=== PATIENT | female | born 1980 | race Caucasian/White ===

== ENCOUNTER 2019-10-08 09:29 | Emergency (ER) | payer OTHER, MEDICARE, SELFPAY ==
[2019-10-08 09:40] VITALS: BP 149/85; PULSE 85; RESP 16; TEMP 36.2; O2SAT 98
--- NOTE | 2019-10-08 09:43 | ED.SKABFB ---
HPI - Skin/Abscess/Foreign Bdy General Chief complaint: Skin/Abscess/Foreign Body Stated complaint: Poison jena or oak Time Seen by Provider: 10/08/19 09:44 Source: patient and RN notes reviewed Mode of arrival: ambulatory Limitations: no limitations History of Present Illness HPI narrative: This is a 39 years old female presents to the office for an evaluation of itchy rash on her face since yesterday. She was pulling vine off her garage door about a week ago. She did not has rash on her face immediately; however her and daughter had similar rash at home; but not as bad. She has tried calamine and benadryl for her symptoms. TD is up to date. Related Data Home Medications Medication Instructions Recorded Confirmed celecoxib [Celebrex] 200 mg PO DAILY 04/17/19 04/17/19 certolizumab pegol [Cimzia] 400 mg SUBCUT ONCE 04/17/19 04/17/19 cholecalciferol (vitamin D3) 1,000 unit PO DAILY 04/17/19 04/17/19 [Vitamin D3] fluticasone propionate [Flonase INTRANASAL 04/17/19 Allergy Relief] folic acid 1 mg PO DAILY 04/17/19 04/17/19 methotrexate 0.8 mg 04/17/19 ji-cx-YR-vit A-ndadg-[id number]-coQ10 cap PO 04/17/19 [Daily Multivitamin] pregabalin [Lyrica] 75 mg PO BID 04/17/19 04/17/19 paroxetine HCl [Paxil] 20 mg PO QAM 05/27/19 05/27/19 omeprazole 40 mg capsule,delayed 40 mg PO DAILY 06/23/19 release Allergies Allergy/AdvReac Type Severity Reaction Status Date / Time Penicillins Allergy Severe Anaphylaxis Verified 06/23/19 09:48 Review of Systems Review of Systems: Narrative: CONSTITUTIONAL: Denies fever ENT: Denies difficulty breathing, lips/tounge swollen CARDIOVASCULAR: Denies chest pain RESPIRATORY: Denies dyspnea, cough GASTROINTESTINAL: Denies nausea, vomiting SKIN: Reports itchy rash on face and left ear. MUSCULOSKELETAL: Denies acute back pain NEUROLOGIC: Denies lightheaded PMFSH Past Medical History Medical History Carpal tunnel syndrome Depression Endometriosis Fibromyalgia Neuropathy Raynauds disease Rheumatoid arthritis Surgical History Surgical History History of bilateral tubal ligation History of spinal fusion Previous section x3 Family History Family History Grandparent Malignant neoplasm of prostate Family history of malignant neoplasm of bone Mother Family history of malignant neoplasm of cervix Other Carcinoma of colon Family history of malignant neoplasm of breast Family history of malignant neoplasm of gastrointestinal tract Family history of malignant neoplasm of kidney Social History Social History Smoking status: Former smoker Second hand tobacco smoke exposure: No Smoking end date: 06/01/99 Alcohol intake: current Comments At time of signature, I agree with nursing past medical, surgical, social and family history. There is no relevant family history pertinent to the presenting complaint. Exam Narrative: Exam Narrative: GENERAL: This is a well-nourished, well-developed patient, in no apparent distress. HEAD: normocephalic, atraumatic. EYES: Sclera clear/white. Vision is grossly intact. EARS: External ears normal, auditory canals clear and without drainage, TMs normal without perforation. Hearing grossly intact. NOSE: External nose normal with no obvious nasal discharge, nares without redness, no rhinorrhea. THROAT: Mucous membranes moist, posterior pharynx clear. NECK: Neck supple, non-tender without lymphadenopathy, masses or thyromegaly. CARDIOVASCULAR: Regular rate and rhythm without murmurs, gallops, or rubs. RESPIRATORY: Clear to auscultation. Breath sounds equal bilaterally. No wheezes, rales, or rhonchi. GASTROINTESTINAL: Abdomen soft, non-tender, nondistended. Bowel sounds are active. No hepato-splenomegaly, o
[2019-10-08] MEDS: methylPREDNISolone ACETATE 40 MG/ML VIAL 80 MG IM (10:01)
== END 2019-10-08 10:28 | disposition home or self-care (01) ==
PROVIDERS: Emergency Provider Nurse Practitioner; PCP Internal Medicine
DX: L24.7 Irritant contact dermatitis due to plants, except food (principal); M06.9 Rheumatoid arthritis, unspecified
CPT/HCPCS: 96372; 99213; G0463; J1030

== ENCOUNTER 2020-02-28 08:49 | Emergency (ER) | payer OTHER, MEDICARE, SELFPAY ==
--- NOTE | 2020-02-28 09:00 | ED.SKABFB ---
HPI - Skin/Abscess/Foreign Bdy General Chief complaint: Skin/Abscess/Foreign Body Stated complaint: bites on leg won't heal Time Seen by Provider: 02/28/20 09:00 Source: patient and RN notes reviewed History of Present Illness HPI narrative: Patient is a 39-year-old female who presents the urgent care with complaints of bites to the right calf. Patient states that they have been there for approximately 3 weeks and are still very itchy. Patient states that she was outside painting while sitting in the grass. Patient denies of any fever, chills, nausea, vomiting. Denies of any increase in redness or swelling to the areas. Patient has been using Neosporin and Benadryl. No other acute complaints. No acute distress noted. Patient aware of the plan of care. Some parts of this dictation were generated by voice recognition software and may contain typographical and/or grammatical inaccuracies. Related Data Home Medications Medication Instructions Recorded Confirmed celecoxib [Celebrex] 200 mg PO DAILY 04/17/19 04/17/19 certolizumab pegol [Cimzia] 400 mg SUBCUT ONCE 04/17/19 04/17/19 cholecalciferol (vitamin D3) 1,000 unit PO DAILY 04/17/19 04/17/19 [Vitamin D3] fluticasone propionate [Flonase INTRANASAL 04/17/19 Allergy Relief] folic acid 1 mg PO DAILY 04/17/19 04/17/19 methotrexate 0.8 mg 04/17/19 xj-dn-BO-vit G-axpkl-wep-coQ10 cap PO 04/17/19 [Daily Multivitamin] pregabalin [Lyrica] 75 mg PO BID 04/17/19 04/17/19 paroxetine HCl [Paxil] 20 mg PO QAM 05/27/19 05/27/19 omeprazole 40 mg capsule,delayed 40 mg PO DAILY 06/23/19 release tofacitinib [Xeljanz XR] 11 mg PO DAILY 02/28/20 02/28/20 Allergies Allergy/AdvReac Type Severity Reaction Status Date / Time Penicillins Allergy Severe Anaphylaxis Verified 02/28/20 09:22 Review of Systems Review of Systems: Narrative: CONSTITUTIONAL: Denies fever, chills, or sweats. EYES: Denies visual changes, redness, or discharge. ENT: Denies rhinorrhea, congestion, sore throat, or otalgia. CARDIOVASCULAR: Denies chest pain, palpitations, or edema. RESPIRATORY: Denies cough or dyspnea. GASTROINTESTINAL: Denies abdominal pain, nausea, vomiting, or diarrhea. GENITOURINARY: Denies dysuria or hematuria. SKIN: Reports of itchy bites to the right calf MUSCULOSKELETAL: Denies back pain, joint pain, or myalgia. NEUROLOGIC: Denies headache, numbness, or weakness. All other systems reviewed are negative, except as documented in HPI. [facility] Social History Social History Smoking status: Former smoker Second hand tobacco smoke exposure: No Smoking end date: 06/01/99 Alcohol intake: current Comments At the time of my signature, I reviewed and agree with the nursing past medical, surgical, social, and family history. There is no relevant family history pertinent to the patient complaint. Exam Narrative: Exam Narrative: GENERAL: This is a well-nourished, well-developed patient, in no apparent distress. HEAD: normocephalic, atraumatic. EYES: PERRL. Sclera clear/white. Vision is grossly intact. EARS: External ears normal NOSE: External nose normal with no obvious nasal discharge, nares without redness, no rhinorrhea. THROAT: Mucous membranes moist NECK: Neck supple SKIN: 4 X 4 area of erythema surrounding a pinpoint insect bite as notable localized reaction to the posterior right calf without any notable cellulitis NEURO: awake, alert, and oriented to person, place and time. There were no obvious focal neurologic abnormalities. EXTREMITIES: No clubbing, cyanosis, or edema. Course Vital Signs Vital signs: Vital Signs Temperature 98.4 F 02/28/20 09:04 Pulse Rate 76 02/28/20 09:04 Respiratory Rate 16 02/28/20 09:04 Blood Pressure 129/86 02/28/20 09:04 Pulse Oximetry 100 02/28/20 09:04 Temperature 98.4 F 02/28/20 09:04 Pulse Rate 76 02/28/20 09:04 Respiratory Rate 16 02/28/20 09:04 Blood Press
[2020-02-28 09:04] VITALS: BP 129/86; PULSE 76; RESP 16; TEMP 36.9; O2SAT 100
== END 2020-02-28 09:30 | disposition home or self-care (01) ==
PROVIDERS: Emergency Provider Nurse Practitioner Family; PCP Internal Medicine
DX: S80.861A Insect bite (nonvenomous), right lower leg, initial encounter (principal); W57.XXXA Bitten or stung by nonvenomous insect and other nonvenomous arthropods, initial encounter; Z87.891 Personal history of nicotine dependence; M06.9 Rheumatoid arthritis, unspecified; M79.7 Fibromyalgia; F32.9 Major depressive disorder, single episode, unspecified
CPT/HCPCS: 99213; G0463

== ENCOUNTER 2020-07-05 08:21 | Emergency (ER) | payer OTHER, MEDICARE, SELFPAY ==
[2020-07-05 08:42] VITALS: BP 118/82; PULSE 90; RESP 18; TEMP 36.3; O2SAT 97
--- NOTE | 2020-07-05 09:17 | ED.URI ---
HPI - URI/Sore Throat General Chief Complaint: Upper Respiratory Infection Stated Complaint: sinus issues Time Seen by Provider: 07/05/20 08:50 Source: patient Mode of arrival: ambulatory Limitations: no limitations History of Present Illness HPI Narrative: Cary Huntley is a 39 yo female with a history of rheumatoid arthritis on immunosuppressive drugs who comes to [facility] with 10 to 14 days of sinus drainage and that has evolved into painful ears and sore throat that started yesterday today she also has developed a dry cough. Related Data Home Medications Medication Instructions Recorded Confirmed celecoxib [Celebrex] 200 mg PO DAILY 04/17/19 03/02/20 cholecalciferol (vitamin D3) 1,000 unit PO DAILY 04/17/19 03/02/20 [Vitamin D3] folic acid 1 mg PO DAILY 04/17/19 03/02/20 py-bo-PG-vit M-xbbyk-kqm-coQ10 1 cap PO DAILY 04/17/19 03/02/20 [Daily Multivitamin] pregabalin [Lyrica] 75 mg PO BID 04/17/19 03/02/20 paroxetine HCl [Paxil] 20 mg PO QAM 05/27/19 03/02/20 tofacitinib [Xeljanz XR] 11 mg PO DAILY 02/28/20 02/28/20 cholestyramine (with sugar) 4 g PO DAILY 03/02/20 03/02/20 gabapentin 600 mg PO HS 03/02/20 03/02/20 hydroxychloroquine 200 mg PO BID 03/02/20 03/02/20 methotrexate sodium 25 mg IM WEEKLY 03/02/20 03/02/20 omeprazole 20 mg PO DAILY 03/02/20 03/02/20 Allergies Allergy/AdvReac Type Severity Reaction Status Date / Time Penicillins Allergy Severe Anaphylaxis Verified 07/05/20 09:00 Review of Systems Review of Systems: Narrative: CONSTITUTIONAL: Denies fever, chills, sweats. EYES: Denies visual changes, redness, discharge. ENT: Denies rhinorrhea, has congestion, has sore throat, bilateral otalgia. CARDIOVASCULAR: Denies chest pain, palpitations, edema. RESPIRATORY: Denies dyspnea, wheezing, dry cough GASTROINTESTINAL: Denies abdominal pain, nausea, vomiting, diarrhea. GENITOURINARY: Denies dysuria, hematuria, abnormal discharge SKIN: Denies rash or itching. NEUROLOGIC: Denies numbness, or focal weakness. PSYCHIATRIC: Denies anxiety or depression. [facility] Past Medical History Medical History (Updated 07/05/20 @ 09:24 by Dina Moreno CNP) Carpal tunnel syndrome Chronic congestion of paranasal sinus Depression Endometriosis Fibromyalgia Neuropathy Raynauds disease Rheumatoid arthritis Surgical History Surgical History History of bilateral tubal ligation History of spinal fusion Previous section x3 Family History Family History Grandparent Malignant neoplasm of prostate Family history of malignant neoplasm of bone Mother Family history of malignant neoplasm of cervix Other Carcinoma of colon Family history of malignant neoplasm of breast Family history of malignant neoplasm of gastrointestinal tract Family history of malignant neoplasm of kidney Social History Social History Smoking status: Former smoker Second hand tobacco smoke exposure: No Smoking end date: 06/01/99 Alcohol intake: current Comments At time of signature, I agree with nursing past medical, surgical, social and family history. There is no relevant family history pertinent to the presenting complaint. Exam Narrative: Exam Narrative: GENERAL: This is a well-nourished, well-developed patient, in mild distress. HEAD: normocephalic, atraumatic. EYES: Sclera clear/white. Vision is grossly intact. EARS: External ears normal, auditory canals erythema with right TM bulging with fluid, TMs without perforation. Hearing grossly intact. NOSE: External nose normal without has nasal discharge, nares with has redness, no rhinorrhea. THROAT: Mucous membranes moist, posterior pharynx erythema NECK: Neck supple, non-tender CARDIOVASCULAR: Regular rate and rhythm without murmurs, gallops, or rubs. RESPIRATORY: Clear to auscult
== END 2020-07-05 09:41 | disposition home or self-care (01) ==
PROVIDERS: Emergency Provider Nurse Practitioner; PCP Internal Medicine
DX: H92.03 Otalgia, bilateral (principal); J02.9 Acute pharyngitis, unspecified; Z20.822 Contact with and (suspected) exposure to COVID-19; F32.9 Major depressive disorder, single episode, unspecified; N80.9 Endometriosis, unspecified; M79.7 Fibromyalgia; M06.9 Rheumatoid arthritis, unspecified; I73.00 Raynaud's syndrome without gangrene; Z87.891 Personal history of nicotine dependence; G62.9 Polyneuropathy, unspecified
CPT/HCPCS: 87081; 87426; 87880; 99213; C9803; G0463

== ENCOUNTER 2020-07-07 11:29 | Emergency (ER) | payer OTHER, MEDICARE, SELFPAY ==
--- NOTE | ~2020-07-07 | XR_ITS ---
EXAMINATION: XR chest 2V DATE: 07/07/2020 12:17 INDICATION: Shortness of breath. TECHNIQUE: Frontal and lateral views of the chest were obtained. COMPARISON: None. FINDINGS: The chest demonstrates clear lungs without pneumonia, pleural effusion, or pneumothorax. Th e heart size is normal. IMPRESSION: 1. No acute cardiopulmonary disease. Reviewed, dictated and finalized at location A. 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
[2020-07-07 11:45] VITALS: BP 154/97; PULSE 100; RESP 20; TEMP 36.9; O2SAT 98
--- NOTE | 2020-07-07 12:12 | ED.GENADULT ---
HPI - General Adult General Chief complaint: Upper Respiratory Infection Stated complaint: called in Source: patient Mode of arrival: ambulatory Limitations: no limitations History of Present Illness HPI narrative: Patient presents for evaluation of respiratory complaints. She indicates she has had sinus congestion the last 3 weeks, which is not unusual for her. She typically uses Zyrtec and Flonase. She was evaluated here on 07/05/2020 after developing headache, sore throat, bilateral otalgia. She does strep screen was negative. She was given prescriptions for Mucinex, Cipro dexamethasone otic preparation and azithromycin. Last night she lost her sense of smell. She has some generalized body aches, nausea without vomiting and diarrhea. She feels warm but states she has not had an objective fever. Her and child both had an upset stomach a few days ago, but their symptoms have resolved. She does not smoke. No known recent exposure to COVID. She is prescribed immunosuppressants for rheumatoid arthritis but has stopped therapy secondary to current symptoms. Emergency Dept Tech is Dr Gross at [facility] in [place], [place]. Related Data Home Medications Medication Instructions Recorded Confirmed celecoxib [Celebrex] 200 mg PO DAILY 04/17/19 07/07/20 cholecalciferol (vitamin D3) 1,000 unit PO DAILY 04/17/19 07/07/20 [Vitamin D3] folic acid 1 mg PO DAILY 04/17/19 07/07/20 uk-bl-SV-vit B-ijnqs-qxh-coQ10 1 cap PO DAILY 04/17/19 07/07/20 [Daily Multivitamin] pregabalin [Lyrica] 75 mg PO BID 04/17/19 07/07/20 paroxetine HCl [Paxil] 20 mg PO QAM 05/27/19 07/07/20 tofacitinib [Xeljanz XR] 11 mg PO DAILY 02/28/20 07/07/20 cholestyramine (with sugar) 4 g PO DAILY 03/02/20 07/07/20 gabapentin 600 mg PO HS 03/02/20 07/07/20 hydroxychloroquine 200 mg PO BID 03/02/20 07/07/20 methotrexate sodium 25 mg IM WEEKLY 03/02/20 07/07/20 omeprazole 20 mg PO DAILY 03/02/20 07/07/20 Allergies Allergy/AdvReac Type Severity Reaction Status Date / Time Penicillins Allergy Severe Anaphylaxis Verified 07/07/20 11:43 Review of Systems Review of Systems: Narrative: CONSTITUTIONAL: Denies fever, chills, or sweats. EYES: Denies visual changes, redness, or discharge. ENT: Denies rhinorrhea, congestion, sore throat, or otalgia. CARDIOVASCULAR: Denies chest pain, palpitations, or edema. RESPIRATORY: Denies cough or dyspnea. GASTROINTESTINAL: Denies abdominal pain, nausea, vomiting, or diarrhea. GENITOURINARY: Denies dysuria or hematuria. SKIN: Denies rash or itching. MUSCULOSKELETAL: Denies back pain, joint pain, or myalgia. NEUROLOGIC: Denies headache, numbness, dizziness, or weakness. PSYCHIATRIC: Denies anxiety or depression. [facility] Past Medical History Medical History Carpal tunnel syndrome Chronic congestion of paranasal sinus Depression Endometriosis Fibromyalgia Neuropathy Raynauds disease Rheumatoid arthritis Surgical History Surgical History History of bilateral tubal ligation History of spinal fusion Previous section x3 Family History Family History Grandparent Malignant neoplasm of prostate Family history of malignant neoplasm of bone Mother Family history of malignant neoplasm of cervix Other Carcinoma of colon Family history of malignant neoplasm of breast Family history of malignant neoplasm of gastrointestinal tract Family history of malignant neoplasm of kidney Social History Social History Smoking status: Former smoker Second hand tobacco smoke exposure: No Smoking end date: 06/01/99 Alcohol intake: current Substance use: never Living arrangements: with family Gender identity (if verbalized by the patient): Female Sexual Orientation (if Verbalized by the P
== END 2020-07-07 12:40 | disposition home or self-care (01) ==
PROVIDERS: Emergency Provider Nurse Practitioner; PCP Internal Medicine
DX: U07.1 COVID-19 (principal); F32.9 Major depressive disorder, single episode, unspecified; N80.9 Endometriosis, unspecified; M79.7 Fibromyalgia; G62.9 Polyneuropathy, unspecified; M06.9 Rheumatoid arthritis, unspecified; I73.00 Raynaud's syndrome without gangrene; Z87.891 Personal history of nicotine dependence
CPT/HCPCS: 71046; 87426; 99213; C9803; G0463

== ENCOUNTER → 2021-01-22 03:16 | Outpatient (CLI) | payer OTHER, MEDICARE, SELFPAY ==
[2021-01-22 19:41] LABS: SARS-CoV-2 RNA PCR Negative
== END ==
PROVIDERS: PCP Internal Medicine; Visit Provider Orthopaedic Surgery Sports Medicine
DX: R68.89 Other general symptoms and signs (principal); Z20.822 Contact with and (suspected) exposure to COVID-19
CPT/HCPCS: C9803; U0003; U0005

== ENCOUNTER → 2021-01-28 00:17 | Outpatient (CLI) | payer OTHER, MEDICARE, SELFPAY ==
[2021-01-29 19:54] LABS: SARS-CoV-2 RNA PCR Negative
== END ==
PROVIDERS: PCP Internal Medicine; Visit Provider Orthopaedic Surgery Sports Medicine
DX: R68.89 Other general symptoms and signs (principal); Z20.822 Contact with and (suspected) exposure to COVID-19
CPT/HCPCS: C9803; U0003; U0005

== ENCOUNTER 2021-05-19 13:53 | Emergency (ER) | payer OTHER, MEDICARE, SELFPAY ==
--- NOTE | ~2021-05-19 | XR_ITS ---
XR wrist LT min 3V 05/19/2021 14:27 Indication: Left wrist pain for one week Procedure: 4 views left wrist Comparison: No prior studies for comparison. Findings: No fracture, subluxation or dislocation. No significant soft tissue abnormality. No foreign bodies. Impression: 1: No acute bone or joint abnormality. Reviewed, dictated and finalized at location A. 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
[2021-05-19 14:00] VITALS: BP 139/85; PULSE 75; RESP 16; TEMP 36.8; O2SAT 100
--- NOTE | 2021-05-19 14:05 | ED.GENADULT ---
HPI - General Adult General Chief complaint: Extremity Injury, Upper Stated complaint: Left Wrist Pain Time Seen by Provider: 05/19/21 14:05 Source: patient Mode of arrival: ambulatory Limitations: no limitations History of Present Illness HPI narrative: 40-year-old female patient presents to the [facility] with complaints of left wrist pain x1 week. Denies any specific injury to the wrist that she can remember. Patient does have history of RA as well as carpal tunnel in the right wrist. Patient states that she has been trying to ice the left wrist but denies any other treatment at this time. Related Data Home Medications Medication Instructions Recorded Confirmed celecoxib [Celebrex] 200 mg PO DAILY 04/17/19 07/25/20 folic acid 1 mg PO DAILY 04/17/19 07/25/20 pregabalin [Lyrica] 75 mg PO BID 04/17/19 07/25/20 paroxetine HCl [Paxil] 20 mg PO QAM 05/27/19 07/25/20 cholestyramine (with sugar) 4 g PO DAILY 03/02/20 07/25/20 gabapentin 600 mg PO HS 03/02/20 07/25/20 methotrexate sodium 25 mg IM WEEKLY 03/02/20 07/25/20 omeprazole 20 mg PO DAILY 03/02/20 07/25/20 azelastine 205.5 mcg (0.15 %) 205.5 mcg INTRANASAL DAILY 07/25/20 07/25/20 nasal spray certolizumab pegol 400 mg SUBCUT ONCE 07/25/20 07/25/20 cetirizine 10 mg capsule 10 mg PO DAILY PRN 07/25/20 07/25/20 fluticasone propionate 50 1 spray INTRANASAL DAILY 07/25/20 07/25/20 mcg/actuation nasal spray,suspension Allergies Allergy/AdvReac Type Severity Reaction Status Date / Time Penicillins Allergy Severe Anaphylaxis Verified 05/19/21 14:10 Review of Systems Review of Systems: CONSTITUTIONAL: Denies fever, chills, or sweats. EYES: Denies visual changes, redness, or discharge. ENT: Denies rhinorrhea, congestion, sore throat, or otalgia. CARDIOVASCULAR: Denies chest pain, palpitations, or edema. RESPIRATORY: Denies cough or dyspnea. GASTROINTESTINAL: Denies abdominal pain, nausea, vomiting, or diarrhea. GENITOURINARY: Denies dysuria or hematuria. SKIN: Denies rash or itching. MUSCULOSKELETAL: Denies back pain, joint pain, or myalgia. Positive left wrist pain NEUROLOGIC: Denies headache, numbness, or weakness. PSYCHIATRIC: Denies anxiety or depression. [facility] Past Medical History Medical History Carpal tunnel syndrome Chronic congestion of paranasal sinus Depression Endometriosis Fibromyalgia Neuropathy Raynauds disease Rheumatoid arthritis Surgical History Surgical History History of bilateral tubal ligation History of hip surgery 01/2021 to remove nodules off hip. History of spinal fusion Previous section x3 Family History Family History Grandparent Malignant neoplasm of prostate Family history of malignant neoplasm of bone Mother Family history of malignant neoplasm of cervix Other Carcinoma of colon Family history of malignant neoplasm of breast Family history of malignant neoplasm of gastrointestinal tract Family history of malignant neoplasm of kidney Social History Social History Smoking status: Former smoker Second hand tobacco smoke exposure: No Smoking end date: 06/01/99 Alcohol intake: current Substance use: never Gender identity (if verbalized by the patient): Female Sexual Orientation (if Verbalized by the Patient): Straight or Heterosexual Spiritual care concerns: No Comments At the time of my signature I agree with nursing past medical history, surgical, social, and family history. There is no relevant family history pertinent to the presenting complaint. Exam Narrative: GENERAL: Well-appearing, well-nourished, and in no acute distress. HEAD: Normocephalic, atraumatic. EYES: PERRLA and EOMI. ENT: Nares clear, no rhinorrhea or epistaxis. Mucous membranes moist. NECK: Sup
== END 2021-05-19 15:00 | disposition home or self-care (01) ==
PROVIDERS: Emergency Provider Nurse Practitioner Family; PCP Internal Medicine
DX: M25.532 Pain in left wrist (principal); Z87.891 Personal history of nicotine dependence; M06.9 Rheumatoid arthritis, unspecified; N80.9 Endometriosis, unspecified; M79.7 Fibromyalgia; G62.9 Polyneuropathy, unspecified; I73.00 Raynaud's syndrome without gangrene; F32.A Depression, unspecified
CPT/HCPCS: 73110; 99213; G0463

== ENCOUNTER 2021-06-07 13:28 | Outpatient (CLI) | payer OTHER, MEDICARE, SELFPAY ==
--- NOTE | ~2021-06-07 | MMUS_ITS ---
EXAMINATION: MM diagnostic aidee BI w bolivar, US breast LT limited HISTORY: Pain of the lower outer left breast TECHNIQUE: Craniocaudal, mediolateral, and mediolateral oblique 3-D tomosynthesis images of the breas ts were performed and synthetic 2-D images were generated. CAD analysis was submitted and interpreted . High resolution limited left breast ultrasound was performed. COMPARISON: None, baseline BREAST PARENCHYMAL COMPOSITION: There are scattered areas of fibroglandular density. FINDINGS: MAMMOGRAPHIC FINDINGS: There is no evidence of suspicious mass, calcification, or architectural distortion in either breast to suggest malignancy. No mammographic correlate is identified for the reported left breast pain. ULTRASOUND: There is no evidence of focal abnormal solid or cystic mass in the vicinity of the patient's left tommie ast pain. IMPRESSION: 1. No specific mammographic or sonographic correlate is identified for the patient's left breast pain . Further evaluation at this time should be based on clinical assessment. Continued follow-up physica l examination is recommended. 2. Recommend routine screening mammography beginning at age 40. BI-RADS Category 1: Negative Reviewed, dictated and finalized at location A. SETTER IMPRESSION: 1. No specific mammographic or sonographic correlate is identified for the hernesto ent's left breast pain. Further evaluation at this time should be based on clin ical assessment. Continued follow-up physical examination is recommended. 2. Recommend routine screening mammography beginning at age 40. BI-RADS Category 1: Negative
== END 2021-06-07 13:29 ==
PROVIDERS: PCP Internal Medicine; Visit Provider Student in an Organized Health Care Education/Training Program
DX: N64.4 Mastodynia (principal)
CPT/HCPCS: 76642; 77062; 77066; G0279

== ENCOUNTER 2021-06-21 13:58 | Emergency (ER) | payer OTHER, MEDICARE, SELFPAY ==
[2021-06-21 14:05] VITALS: BP 125/78; PULSE 68; RESP 18; TEMP 36.7; O2SAT 100
--- NOTE | 2021-06-21 14:19 | ED.URI ---
HPI - URI/Sore Throat General Chief Complaint: Upper Respiratory Infection Stated Complaint: chest pain sob Time Seen by Provider: 06/21/21 14:19 Source: patient History of Present Illness HPI Narrative: Patient presents with continued cough and nasal congestion. Patient states the cough is worse at night when she lays down. Patient states 7 days ago she was given a Z-Macho by her primary care provider which she has since finished. Patient states she uses Flonase nasal spray once daily and takes allergy medications as directed by her PCP. 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 Patient denies any shortness of breath and no chest pain. Patient states she had a negative COVID-19 test at her physician's office and does not wish to be tested for COVID-19 today. MD elicited complaint: nasal congestion Related Data Home Medications Medication Instructions Recorded Confirmed celecoxib [Celebrex] 200 mg PO DAILY 04/17/19 06/21/21 folic acid 1 mg PO DAILY 04/17/19 06/21/21 pregabalin [Lyrica] 75 mg PO BID 04/17/19 06/21/21 paroxetine HCl [Paxil] 20 mg PO QAM 05/27/19 06/21/21 cholestyramine (with sugar) 4 g PO DAILY 03/02/20 06/21/21 gabapentin 600 mg PO HS 03/02/20 06/21/21 methotrexate sodium 25 mg IM WEEKLY 03/02/20 06/21/21 omeprazole 20 mg PO DAILY 03/02/20 06/21/21 azelastine 205.5 mcg (0.15 %) 205.5 mcg INTRANASAL DAILY 07/25/20 06/21/21 nasal spray certolizumab pegol 400 mg SUBCUT ONCE 07/25/20 06/21/21 cetirizine 10 mg capsule 10 mg PO DAILY 07/25/20 06/21/21 fluticasone propionate 50 1 spray INTRANASAL DAILY 07/25/20 06/21/21 mcg/actuation nasal spray,suspension Allergies Allergy/AdvReac Type Severity Reaction Status Date / Time Penicillins Allergy Severe Anaphylaxis Verified 06/21/21 14:13 Review of Systems Review of Systems: CONSTITUTIONAL: Denies chills, or sweats. Reports fever and generalized body aches EYES: Denies visual changes, redness, or discharge. ENT: Denies otalgia. Reports nasal congestion runny nose and sore throat CARDIOVASCULAR: Denies chest pain, palpitations, or edema. RESPIRATORY: Denies dyspnea. Reports occasional cough GASTROINTESTINAL: Denies abdominal pain, nausea, vomiting, or diarrhea. GENITOURINARY: Denies dysuria or hematuria. SKIN: Denies rash or itching. MUSCULOSKELETAL: Denies back pain, joint pain, or myalgia. Reports generalized body aches NEUROLOGIC: Denies headache, numbness, or weakness. PSYCHIATRIC: Denies anxiety or depression. [facility] Past Medical History Medical History Carpal tunnel syndrome Chronic congestion of paranasal sinus Depression Endometriosis Fibromyalgia Neuropathy Raynauds disease Rheumatoid arthritis Surgical History Surgical History History of bilateral tubal ligation History of hip surgery 01/2021 to remove nodules off hip. History of spinal fusion Previous section x3 Family History Family History Grandparent Malignant neoplasm of prostate Family history of malignant neoplasm of bone Mother Family history of malignant neoplasm of cervix Other Carcinoma of colon Family history of malignant neoplasm of breast Family history of malignant neoplasm of gastrointestinal tract Family history of malignant neoplasm of kidney Social History Social History Smoking status: Former smoker Second hand tobacco smoke exposure: No Smoking end date: 06/01/99 Alcohol intake: current Substance use: never Gender identity (if verbalized by the patient): Female Sexual Orientation (if Verbalized by the Patient): Straight or Heterosexual Spiritual care concerns: No Comments Past medical history Exam Narrative: [facility]
== END 2021-06-21 14:25 | disposition home or self-care (01) ==
PROVIDERS: Emergency Provider Nurse Practitioner Family; PCP Internal Medicine
DX: J06.9 Acute upper respiratory infection, unspecified (principal); Z87.891 Personal history of nicotine dependence; N80.9 Endometriosis, unspecified; M79.7 Fibromyalgia; G62.9 Polyneuropathy, unspecified; I73.00 Raynaud's syndrome without gangrene; M06.9 Rheumatoid arthritis, unspecified; F32.9 Major depressive disorder, single episode, unspecified
CPT/HCPCS: 99213; G0463

== ENCOUNTER 2021-10-12 16:45 | Emergency (ER) | payer OTHER, MEDICARE, SELFPAY ==
[2021-10-12 16:57] VITALS: BP 128/87; PULSE 63; RESP 18; TEMP 36.3; O2SAT 100
--- NOTE | 2021-10-12 16:57 | ED.URI ---
HPI - URI/Sore Throat General Chief Complaint: Upper Respiratory Infection Stated Complaint: Sore Throat Time Seen by Provider: 10/12/21 17:10 Source: patient and RN notes reviewed Mode of arrival: ambulatory Limitations: no limitations History of Present Illness HPI Narrative: 41-year-old female presents with concern for sore throat. She reports 1 week history of sore throat. She denies new nasal congestion, rhinorrhea, sinus pain. Reports she chronically deals with sinus problems and always takes sinus medication. She denies cough, shortness of breath, fever, body aches, chills, sweats. Other than her typical sinus medicine she has not taking any other medication for her symptoms. MD elicited complaint: sore throat Related Data Home Medications Medication Instructions Recorded Confirmed celecoxib [Celebrex] 200 mg PO DAILY 04/17/19 10/12/21 folic acid 1 mg PO DAILY 04/17/19 10/12/21 pregabalin [Lyrica] 75 mg PO BID 04/17/19 10/12/21 paroxetine HCl [Paxil] 20 mg PO QAM 05/27/19 10/12/21 methotrexate sodium 25 mg IM WEEKLY 03/02/20 10/12/21 omeprazole 20 mg PO DAILY 03/02/20 10/12/21 famotidine 10/12/21 fluticasone furoate-vilanterol INHALATION 10/12/21 [Breo Ellipta] mometasone-formoterol [Dulera] INHALATION 10/12/21 Allergies Allergy/AdvReac Type Severity Reaction Status Date / Time Penicillins Allergy Severe Anaphylaxis Verified 10/12/21 17:01 Review of Systems Review of Systems: CONSTITUTIONAL: Denies malaise, chills, sweats, or fever. EYES: Denies visual changes, redness, or discharge. ENT: Denies new rhinorrhea, congestion, sinus pain, otalgia. Reports sore throat. CARDIOVASCULAR: Denies chest pain, palpitations, or edema. RESPIRATORY: Denies cough. Denies dyspnea. GASTROINTESTINAL: Denies abdominal pain, nausea, vomiting, diarrhea SKIN: Denies rash or itching. MUSCULOSKELETAL: Denies myalgia. NEUROLOGIC: Denies headache. All systems reviewed & are unremarkable except as noted in HPI and below PMFSH Past Medical History Medical History Carpal tunnel syndrome Chronic congestion of paranasal sinus Depression Endometriosis Fibromyalgia Neuropathy Raynauds disease Rheumatoid arthritis Surgical History Surgical History History of bilateral tubal ligation History of hip surgery 01/2021 to remove nodules off hip. History of spinal fusion Previous section x3 Family History Family History Grandparent Malignant neoplasm of prostate Family history of malignant neoplasm of bone Mother Family history of malignant neoplasm of cervix Other Carcinoma of colon Family history of malignant neoplasm of breast Family history of malignant neoplasm of gastrointestinal tract Family history of malignant neoplasm of kidney Social History Social History Smoking status: Former smoker Second hand tobacco smoke exposure: No Smoking end date: 06/01/99 Alcohol intake: current Substance use: never Gender identity (if verbalized by the patient): Female Sexual Orientation (if Verbalized by the Patient): Straight or Heterosexual Spiritual care concerns: No Comments At time of signature, agree with nursing past medical, surgical, social and family history. There is no relevant family history pertinent to the presenting complaint Exam Narrative: GENERAL: Well-appearing, well-nourished, and in no acute distress. HEAD: Normocephalic EYES: PERRLA, conjunctivae clear ENT: Nares clear, clear discharge. Mucous membranes moist. TM pearly connor with sharp light reflex bilaterally; no tragal tenderness. Oropharynx not erythematous without lesions. Tonsils not present, no drooling, no hoarseness, no trismus, uvula midline. NECK: Supple. No lymphadenopathy CHEST: Clear to auscul
== END 2021-10-12 17:45 | disposition home or self-care (01) ==
PROVIDERS: Emergency Provider Nurse Practitioner; PCP Internal Medicine
DX: J02.9 Acute pharyngitis, unspecified (principal); Z20.822 Contact with and (suspected) exposure to COVID-19; Z87.891 Personal history of nicotine dependence; M79.7 Fibromyalgia; G62.9 Polyneuropathy, unspecified; I73.00 Raynaud's syndrome without gangrene; M06.9 Rheumatoid arthritis, unspecified; F32.A Depression, unspecified
CPT/HCPCS: 87081; 87426; 87804; 87880; 99213; C9803; G0463

== ENCOUNTER 2022-01-08 11:56 | Emergency (ER) | payer OTHER, MEDICARE, SELFPAY ==
--- NOTE | ~2022-01-08 | XR_ITS ---
XR tibia fibula RT 2V 01/08/2022 12:33 INDICATION: Right leg pain PROCEDURE: 2 views right tibia/fibula COMPARISON: No prior studies for comparison. FINDINGS: Fracture, dislocation or subluxation is not identified. The soft tissues appear within norm al limits. No foreign bodies are identified. IMPRESSION: 1: NO ACUTE BONE OR JOINT ABNORMALITY IDENTIFIED. Reviewed, dictated and finalized at location A.
--- NOTE | 2022-01-08 12:02 | ED.LOWEXIN ---
HPI - Extremity Injury (Lower) General Chief Complaint: Extremity Injury, Lower Stated Complaint: Right Leg Injury Time Seen by Provider: 01/08/22 12:02 Source: patient and RN notes reviewed History of Present Illness HPI Narrative: Patient is a 41-year-old female who presents the urgent care with complaints of right lower leg pain. Patient states that 1 week ago she was up at dancing and jumping around and felt a sharp twinge in her right javier. Patient states that now she is having increased pain with ambulation or weightbearing. Patient takes tramadol for her RA and fibromyalgia and has continued the tramadol without much relief. Patient states she does live a mainly sedentary life. No other acute complaints. No acute distress noted. Patient aware of the plan of care. Some parts of this dictation were generated by voice recognition software and may contain typographical and/or grammatical inaccuracies. Related Data Home Medications Medication Instructions Recorded Confirmed celecoxib 200 mg capsule (Celebrex) 200 mg PO DAILY 04/17/19 10/12/21 folic acid 1 mg tablet 1 mg PO DAILY 04/17/19 10/12/21 methotrexate sodium 25 mg/mL 25 mg IM WEEKLY 03/02/20 10/12/21 injection solution omeprazole 20 mg capsule,delayed 20 mg PO DAILY 03/02/20 10/12/21 release famotidine 40 mg tablet 10/12/21 fluticasone furoate 200 inhalation 10/12/21 mcg-vilanterol 25 mcg/dose inhalation powder (Breo Ellipta) mometasone-formoterol HFA 200 inhalation 10/12/21 mcg-5 mcg/actuation aerosol inhaler (Dulera) paroxetine HCl 30 mg tablet 30 mg PO DAILY 01/08/22 01/08/22 pregabalin 100 mg capsule 100 mg PO BID 01/08/22 01/08/22 sulfasalazine 500 mg tablet 1,000 mg PO BID 01/08/22 01/08/22 tramadol 50 mg tablet 50 mg PO TID PRN Pain 01/08/22 01/08/22 Allergies Allergy/AdvReac Type Severity Reaction Status Date / Time Penicillins Allergy Severe Anaphylaxis Verified 01/08/22 12:24 Review of Systems Review of Systems: CONSTITUTIONAL: Denies fever, chills, or sweats. EYES: Denies visual changes, redness, or discharge. ENT: Denies rhinorrhea, congestion, sore throat, or otalgia. CARDIOVASCULAR: Denies chest pain, palpitations, or edema. RESPIRATORY: Denies cough or dyspnea. GASTROINTESTINAL: Denies abdominal pain, nausea, vomiting, or diarrhea. GENITOURINARY: Denies dysuria or hematuria. SKIN: Denies rash or itching. MUSCULOSKELETAL: Reports of right lower leg pain NEUROLOGIC: Denies headache, numbness, or weakness. All other systems reviewed are negative, except as documented in HPI. [facility] Past Medical History Medical History Carpal tunnel syndrome Chronic congestion of paranasal sinus Depression Endometriosis Fibromyalgia Neuropathy Raynauds disease Rheumatoid arthritis Surgical History Surgical History History of bilateral tubal ligation History of hip surgery 01/2021 to remove nodules off hip. History of spinal fusion Previous section x3 Family History Family History Grandparent Malignant neoplasm of prostate Family history of malignant neoplasm of bone Mother Family history of malignant neoplasm of cervix Other Carcinoma of colon Family history of malignant neoplasm of breast Family history of malignant neoplasm of gastrointestinal tract Family history of malignant neoplasm of kidney Social History Social History Smoking status: Former smoker Second hand tobacco smoke exposure: No Smoking end date: 06/01/99 Alcohol intake: current Substance use: never Gender identity (if verbalized by the patient): Female Sexual Orientation (if Verbalized by the Patient): Straight or Heterosexual Spiritual care concerns: No Comments At the time of my signature, I reviewe
[2022-01-08 12:09] VITALS: BP 164/97; PULSE 79; RESP 20; TEMP 37.4; O2SAT 100
--- NOTE | 2022-01-08 12:43 | PC.NURSE ---
PT DECLINED ICE FOR COMFORT AND WHEELCHAIR TO RADIOLOGY
== END 2022-01-08 12:50 | disposition home or self-care (01) ==
PROVIDERS: Emergency Provider Nurse Practitioner Family; PCP Internal Medicine
DX: M79.661 Pain in right lower leg (principal); Z87.891 Personal history of nicotine dependence; N80.9 Endometriosis, unspecified; M79.7 Fibromyalgia; G62.9 Polyneuropathy, unspecified; I73.00 Raynaud's syndrome without gangrene; M06.9 Rheumatoid arthritis, unspecified; F32.A Depression, unspecified
CPT/HCPCS: 73590; 99213; G0463

== ENCOUNTER 2022-04-09 09:58 | Emergency (ER) | payer OTHER, MEDICARE, SELFPAY ==
[2022-04-09 10:20] VITALS: BP 146/83; PULSE 86; RESP 16; TEMP 36.6; O2SAT 98
--- NOTE | 2022-04-09 10:22 | ED.FEMALEGU ---
HPI - Female Genitourinary General Chief complaint: Urogenital-Female Stated complaint: Poss uti back pain Time Seen by Provider: 04/09/22 10:02 Source: patient and RN notes reviewed History of Present Illness HPI Narrative: Patient is a 41-year-old female who presents to the Urgent Care with complaints of a possible UTI. Patient states that she has had right back pain for the last 2 days and was in the ER for chronic back pain and given a muscle relaxer. Patient states that they did not do any CT scanning or check her urine at that time. Patient states that now since yesterday she has had burning, frequency, urgency and pressure. Patient does not have history of UTIs. Denies any fevers, nausea, vomiting or abdominal pain. Patient has not done anything for her symptoms. No other acute complaints. No acute distress noted. Patient aware of the plan care. Some parts of this dictation were generated by voice recognition software and may contain typographical and/or grammatical inaccuracies. Related Data Home Medications Medication Instructions Recorded Confirmed celecoxib 200 mg capsule (Celebrex) 200 mg PO DAILY 04/17/19 02/17/22 folic acid 1 mg tablet 1 mg PO DAILY 04/17/19 02/17/22 methotrexate sodium 25 mg/mL 25 mg IM WEEKLY 03/02/20 02/17/22 injection solution famotidine 40 mg tablet 40 mg PO DAILY 10/12/21 02/17/22 fluticasone furoate 200 2 inh inhalation DAILY 10/12/21 02/17/22 mcg-vilanterol 25 mcg/dose inhalation powder (Breo Ellipta) paroxetine HCl 30 mg tablet 30 mg PO DAILY 01/08/22 02/17/22 pregabalin 100 mg capsule 100 mg PO BID 01/08/22 02/17/22 sulfasalazine 500 mg tablet 1,000 mg PO BID 01/08/22 02/17/22 tramadol 50 mg tablet 50 mg PO TID PRN Pain 01/08/22 02/17/22 calcium carbonate 500 mg calcium 500 mg PO DAILY 02/17/22 02/17/22 (1,250 mg) tablet cetirizine 10 mg capsule (Zyrtec) 10 mg PO DAILY PRN 02/17/22 02/17/22 cholecalciferol (vitamin D3) 25 25 mcg PO DAILY 02/17/22 02/17/22 mcg (1,000 unit) capsule esomeprazole magnesium 20 mg 20 mg PO DAILY 02/17/22 02/17/22 capsule,delayed release (Nexium) azathioprine 50 mg tablet 50 mg PO BID 04/09/22 04/09/22 Allergies Allergy/AdvReac Type Severity Reaction Status Date / Time Penicillins Allergy Severe Anaphylaxis Verified 04/09/22 10:38 Review of Systems Review of Systems: CONSTITUTIONAL: Denies fever, chills, or sweats. EYES: Denies visual changes, redness, or discharge. ENT: Denies rhinorrhea, congestion, sore throat, or otalgia. CARDIOVASCULAR: Denies chest pain, palpitations, or edema. RESPIRATORY: Denies cough or dyspnea. GASTROINTESTINAL: Denies abdominal pain, nausea, vomiting, or diarrhea. GENITOURINARY: reports of urgency, frequency and dysuria SKIN: Denies rash or itching. MUSCULOSKELETAL: Reports of right flank pain NEUROLOGIC: Denies headache, numbness, or weakness. All other systems reviewed are negative, except as documented in HPI. ON LICENSE OF [facility] Past Medical History Medical History Allergies Arthritis Carpal tunnel syndrome Chronic congestion of paranasal sinus Depression Endometriosis Fibromyalgia GERD (gastroesophageal reflux disease) IBS (irritable bowel syndrome) Neuropathy Raynauds disease Rheumatoid arthritis Surgical History Surgical History History of bilateral tubal ligation History of hip surgery 01/2021 to remove nodules off hip. History of spinal fusion Previous section x3 Family History Family History Grandparent Malignant neoplasm of prostate Family history of malignant neoplasm of bone Cancer Mother Family history of malignant neoplasm of cervix Thyroid disorder Father Alcoholism Other Cancer Other Carcinoma of colon Family history of malignant neoplasm of breast Family history of malignant neoplas
== END 2022-04-09 10:55 | disposition home or self-care (01) ==
PROVIDERS: Emergency Provider Nurse Practitioner Family; PCP Internal Medicine
DX: R10.9 Unspecified abdominal pain (principal); Z87.891 Personal history of nicotine dependence; M19.90 Unspecified osteoarthritis, unspecified site; N80.9 Endometriosis, unspecified; M79.7 Fibromyalgia; K21.9 Gastro-esophageal reflux disease without esophagitis; I73.00 Raynaud's syndrome without gangrene; M06.9 Rheumatoid arthritis, unspecified
CPT/HCPCS: 81003; 99212; G0463

== ENCOUNTER 2022-07-09 09:14 | Emergency (ER) | payer OTHER, MEDICARE, SELFPAY ==
[2022-07-09 09:21] VITALS: BP 143/83; PULSE 86; RESP 16; TEMP 36.4; O2SAT 98
--- NOTE | 2022-07-09 09:32 | ED.URI ---
HPI - URI/Sore Throat General Chief Complaint: Upper Respiratory Infection Stated Complaint: Sinus Pain Time Seen by Provider: 07/09/22 09:33 Source: patient and RN notes reviewed Mode of arrival: ambulatory Limitations: no limitations History of Present Illness HPI Narrative: 41-year-old female presents concern for several week history of sinus pain, pressure, headache. She reports she has chronic sinus problems. She reports she has been taking [id number] medication without relief. Reports she cannot take Sudafed because she has Raynaud's, reports she cannot take steroids because she is allergic. She denies fever, aches, chills. MD elicited complaint: nasal congestion and sinus pain Related Data Home Medications Medication Instructions Recorded Confirmed famotidine 40 mg tablet 40 mg PO DAILY 10/12/21 07/09/22 paroxetine HCl 30 mg tablet 30 mg PO DAILY 01/08/22 07/09/22 pregabalin 100 mg capsule 100 mg PO BID 01/08/22 07/09/22 tramadol 50 mg tablet 50 mg PO TID PRN Pain 01/08/22 07/09/22 calcium carbonate 500 mg calcium 500 mg PO DAILY 02/17/22 07/09/22 (1,250 mg) tablet cetirizine 10 mg capsule (Zyrtec) 10 mg PO DAILY 02/17/22 07/09/22 azathioprine 50 mg tablet 50 mg PO TID 04/09/22 07/09/22 celecoxib 200 mg capsule 200 mg PO DAILY 07/09/22 07/09/22 diclofenac sodium 75 mg 75 mg PO BID 07/09/22 07/09/22 tablet,delayed release Allergies Allergy/AdvReac Type Severity Reaction Status Date / Time Penicillins Allergy Severe Anaphylaxis Verified 07/09/22 09:29 Review of Systems Review of Systems: CONSTITUTIONAL: Denies malaise, chills, sweats, or fever. EYES: Denies visual changes, redness, or discharge. ENT: Reports rhinorrhea, congestion, sinus pain. Denies otalgia and sore throat. CARDIOVASCULAR: Denies chest pain, palpitations, or edema. RESPIRATORY: Reports cough. Denies dyspnea. GASTROINTESTINAL: Denies abdominal pain, nausea, vomiting, diarrhea SKIN: Denies rash or itching. MUSCULOSKELETAL: Denies myalgia. NEUROLOGIC: Reports headache. All systems reviewed & are unremarkable except as noted in HPI and below PMFSH Past Medical History Medical History Allergies Arthritis Carpal tunnel syndrome Chronic congestion of paranasal sinus Depression Endometriosis Fibromyalgia GERD (gastroesophageal reflux disease) IBS (irritable bowel syndrome) Neuropathy Raynauds disease Rheumatoid arthritis Surgical History Surgical History History of bilateral tubal ligation History of hip surgery 01/2021 to remove nodules off hip. History of spinal fusion Previous section x3 Family History Family History Grandparent Malignant neoplasm of prostate Family history of malignant neoplasm of bone Cancer Mother Family history of malignant neoplasm of cervix Thyroid disorder Father Alcoholism Other Cancer Other Carcinoma of colon Family history of malignant neoplasm of breast Family history of malignant neoplasm of gastrointestinal tract Family history of malignant neoplasm of kidney Social History Social History Smoking status: Former smoker Second hand tobacco smoke exposure: No Smoking end date: 06/01/99 Alcohol intake: former Substance use: never Substance use type: does not use Lack of Transportation: No Lack of Food: Never True Current Housing: I Have Housing Concerned About Future Housing: No Difficulty Paying Gas/Electric Bills: No Difficulty Paying for Meds: No Currently Unemployed: No Education: Associate Degree Difficulty w/ Childcare or Family Care: No Living arrangements: with family Additional occupation/education comments: disabled Gender identity (if verbalized by the patient): Female Sexual Orientation (if Verbal
== END 2022-07-09 09:42 | disposition home or self-care (01) ==
PROVIDERS: Emergency Provider Nurse Practitioner; PCP Internal Medicine
DX: J01.90 Acute sinusitis, unspecified (principal); B96.89 Other specified bacterial agents as the cause of diseases classified elsewhere; Z87.891 Personal history of nicotine dependence
CPT/HCPCS: 99213; G0463

== ENCOUNTER → 2022-12-12 10:15 | Outpatient (CLI) | payer OTHER, MEDICARE, SELFPAY ==
--- NOTE | ~2022-12-12 | MM_ITS ---
EXAMINATION: MM screening aidee BI w [facility] HISTORY: Screening mammogram TECHNIQUE: Craniocaudal and mediolateral oblique 3-D tomosynthesis images were obtained and synthetic 2-D images were generated. CAD analysis was submitted and interpreted. COMPARISON: 06/07/2021 diagnostic bilateral mammogram and limited left breast ultrasound examination BREAST PARENCHYMAL COMPOSITION: There are scattered areas of fibroglandular density. FINDINGS: There is no evidence of suspicious mass, calcification, or architectural distortion to sugg est malignancy in either breast. There has been no suspicious interval change. IMPRESSION: 1. No mammographic evidence of malignancy. 2. Recommend routine screening mammography in one year. BI-RADS Category 1: Negative Reviewed, dictated and finalized at location A.
== END ==
PROVIDERS: PCP Obstetrics & Gynecology; Visit Provider Obstetrics & Gynecology
DX: Z12.31 Encounter for screening mammogram for malignant neoplasm of breast (principal)
CPT/HCPCS: 77063; 77067

== ENCOUNTER 2023-02-20 10:08 | Emergency (ER) | payer OTHER, MEDICARE, SELFPAY ==
[2023-02-20 10:18] VITALS: BP 139/85; PULSE 80; RESP 20; TEMP 36.4; O2SAT 100
--- NOTE | 2023-02-20 10:48 | ED.URI ---
HPI - URI/Sore Throat General Chief Complaint: Upper Respiratory Infection Stated Complaint: Headache,Ear Pain,Cough Time Seen by Provider: 02/20/23 10:48 Source: patient, RN notes reviewed and old records reviewed Mode of arrival: ambulatory Limitations: no limitations History of Present Illness HPI Narrative: 42-year-old female presents to the [facility] with complaints of headache, ear pain and cough that started 6 days Has tried Mucinex 1 with no relief Related Data Home Medications Medication Instructions Recorded Confirmed paroxetine HCl 30 mg tablet 30 mg PO DAILY 01/08/22 02/20/23 pregabalin 100 mg capsule 100 mg PO BID 01/08/22 02/20/23 tramadol 50 mg tablet 50 mg PO TID PRN Pain 01/08/22 02/20/23 cetirizine 10 mg capsule (Zyrtec) 10 mg PO DAILY 02/17/22 02/20/23 azathioprine 50 mg tablet 50 mg PO TID 04/09/22 02/20/23 diclofenac sodium 75 mg 75 mg PO BID 07/09/22 02/20/23 tablet,delayed release Allergies Allergy/AdvReac Type Severity Reaction Status Date / Time Penicillins Allergy Severe Anaphylaxis Verified 07/09/22 09:29 Review of Systems Review of Systems: All systems reviewed & are unremarkable except as noted in HPI and below Constitutional: Constitutional: Reports no additional constitutional complaints Eyes: Eyes: Reports no additional eye complaints ENT: Reports as per HPI Cardiovascular: Cardiovascular: Reports no additional cardiovascular complaints, Denies chest pain and Denies dyspnea Respiratory: Respiratory: Reports as per HPI, Denies chest congestion, Reports cough and Denies dyspnea Gastrointestinal: Gastrointestinal: Reports no additional gastrointestinal complaints, Denies abdominal pain, Denies nausea and Denies vomiting Musculoskeletal: Musculoskeletal: Reports no additional musculoskeletal complaints Integumentary/Breasts: Skin/Breast: Reports system reviewed and no additional complaints, except as docu Neurologic: Reports system reviewed and no additional complaints, except as documented Psychiatric: Psychiatric: Reports no additional psychiatric complaints Allergic/Immunologic: Allergic/Immunologic: Reports no additional allergic/immunologic complaints PMFSH Past Medical History Medical History Allergies Arthritis Carpal tunnel syndrome Chronic congestion of paranasal sinus Depression Endometriosis Fibromyalgia GERD (gastroesophageal reflux disease) IBS (irritable bowel syndrome) Neuropathy Raynauds disease Rheumatoid arthritis Surgical History Surgical History History of bilateral tubal ligation History of hip surgery 01/2021 to remove nodules off hip. History of spinal fusion Previous section x3 Family History Family History Grandparent Malignant neoplasm of prostate Family history of malignant neoplasm of bone Cancer Mother Family history of malignant neoplasm of cervix Thyroid disorder Father Alcoholism Other Cancer Other Carcinoma of colon Family history of malignant neoplasm of breast Family history of malignant neoplasm of gastrointestinal tract Family history of malignant neoplasm of kidney Social History Social History Smoking status: Former smoker Second hand tobacco smoke exposure: No Smoking end date: 06/01/99 Alcohol intake: former Substance use: never Substance use type: does not use Lack of Transportation: No Lack of Food: Never True Current Housing: I Have Housing Concerned About Future Housing: No Difficulty Paying Gas/Electric Bills: No Difficulty Paying for Meds: No Currently Unemployed: No Education: Associate Degree Difficulty w/ Childcare or Family Care: No Living arrangements: with family Additional occupation/education comments: disabled Gender ident
== END 2023-02-20 11:11 | disposition home or self-care (01) ==
PROVIDERS: Emergency Provider Nurse Practitioner; PCP Internal Medicine
DX: J06.9 Acute upper respiratory infection, unspecified (principal); J40 Bronchitis, not specified as acute or chronic; Z87.891 Personal history of nicotine dependence; M19.90 Unspecified osteoarthritis, unspecified site; N80.9 Endometriosis, unspecified; M79.7 Fibromyalgia; K21.9 Gastro-esophageal reflux disease without esophagitis; G62.9 Polyneuropathy, unspecified; I73.00 Raynaud's syndrome without gangrene; M06.9 Rheumatoid arthritis, unspecified
CPT/HCPCS: 99213; G0463

== ENCOUNTER 2023-03-06 11:08 | Emergency (ER) | payer OTHER, MEDICARE, SELFPAY ==
[2023-03-06 11:16] VITALS: BP 149/91; PULSE 94; RESP 16; TEMP 36.3; O2SAT 97
--- NOTE | 2023-03-06 11:34 | ED.EAR ---
HPI - Ear Problem General Chief complaint: Ear Stated complaint: Ear Pain Source: patient and RN notes reviewed History of Present Illness HPI Narrative: 42-year-old male presents to urgent care complaints of bilateral sinus pressure and pain x1 week. Patient reports congestion and bilateral ear pain. Patient states she had a upper respiratory infection approximately 2 weeks ago which cleared with steroids. Denies any sore throat, fevers, chills vomiting, diarrhea, chest or shortness of breath. Patient has been taking [id number] medications along Flonase without any relief. Related Data Home Medications Medication Instructions Recorded Confirmed paroxetine HCl 30 mg tablet 30 mg PO DAILY 01/08/22 02/20/23 pregabalin 100 mg capsule 100 mg PO BID 01/08/22 02/20/23 tramadol 50 mg tablet 50 mg PO TID PRN Pain 01/08/22 02/20/23 cetirizine 10 mg capsule (Zyrtec) 10 mg PO DAILY 02/17/22 02/20/23 azathioprine 50 mg tablet 50 mg PO TID 04/09/22 02/20/23 diclofenac sodium 75 mg 75 mg PO BID 07/09/22 02/20/23 tablet,delayed release Allergies Allergy/AdvReac Type Severity Reaction Status Date / Time Penicillins Allergy Severe Anaphylaxis Verified 03/06/23 11:10 Review of Systems Review of Systems: Pertinent positives and pertinent negatives per HPI. PMF Past Medical History Medical History Allergies Arthritis Carpal tunnel syndrome Chronic congestion of paranasal sinus Depression Endometriosis Fibromyalgia GERD (gastroesophageal reflux disease) IBS (irritable bowel syndrome) Neuropathy Raynauds disease Rheumatoid arthritis Surgical History Surgical History History of bilateral tubal ligation History of hip surgery 01/2021 to remove nodules off hip. History of spinal fusion Previous section x3 Family History Family History Grandparent Malignant neoplasm of prostate Family history of malignant neoplasm of bone Cancer Mother Family history of malignant neoplasm of cervix Thyroid disorder Father Alcoholism Other Cancer Other Carcinoma of colon Family history of malignant neoplasm of breast Family history of malignant neoplasm of gastrointestinal tract Family history of malignant neoplasm of kidney Social History Social History Smoking status: Former smoker Second hand tobacco smoke exposure: No Smoking end date: 06/01/99 Alcohol intake: former Substance use: never Substance use type: does not use Lack of Transportation: No Lack of Food: Never True Current Housing: I Have Housing Concerned About Future Housing: No Difficulty Paying Gas/Electric Bills: No Difficulty Paying for Meds: No Currently Unemployed: No Education: Associate Degree Difficulty w/ Childcare or Family Care: No Living arrangements: with family Additional occupation/education comments: disabled Gender identity (if verbalized by the patient): Female Sexual Orientation (if Verbalized by the Patient): Straight or Heterosexual Spiritual care concerns: No Comments At the time of my signature, I reviewed and agree with the nursing past medical, surgical, social, and family history. There is no relevant family history pertinent to the patient complaint. Exam Narrative: GENERAL: This is a well-nourished, well-developed patient, in no apparent distress. HEAD: normocephalic, atraumatic. EYES: Sclera clear/white. Vision is grossly intact. EARS: External ears normal, auditory canals clear and without drainage, TMs normal without perforation. Hearing grossly intact. NOSE: External nose normal with no obvious nasal discharge, nares without redness, no rhinorrhea. Max sinus tenderness bilaterally. THROAT: Mucous membranes moist, posterior pharynx clear. NECK:
== END 2023-03-06 11:42 | disposition home or self-care (01) ==
PROVIDERS: Emergency Provider Nurse Practitioner Family; PCP Internal Medicine
DX: J32.0 Chronic maxillary sinusitis (principal); K21.9 Gastro-esophageal reflux disease without esophagitis; Z87.891 Personal history of nicotine dependence
CPT/HCPCS: 99213; G0463

== ENCOUNTER 2023-05-04 11:10 | Emergency (ER) | payer OTHER, MEDICARE, SELFPAY ==
[2023-05-04 11:18] VITALS: BP 140/75; PULSE 76; RESP 20; TEMP 35.9; O2SAT 97
--- NOTE | 2023-05-04 12:18 | ED.URI ---
HPI - URI/Sore Throat General Chief Complaint: Upper Respiratory Infection Stated Complaint: cough Time Seen by Provider: 05/04/23 12:15 Source: patient, RN notes reviewed and old records reviewed Mode of arrival: ambulatory Limitations: no limitations History of Present Illness HPI Narrative: 42-year-old female presents to [facility] with complaint of productive cough, congestion, and headache for 2 weeks. patient states has been taking hqyv-ced-[id number] medications that is helping with congestion but cough is worsening MD elicited complaint: cough, nasal congestion and sinus pain Related Data Home Medications Medication Instructions Recorded Confirmed paroxetine HCl 30 mg tablet 30 mg PO DAILY 01/08/22 05/04/23 pregabalin 100 mg capsule 100 mg PO BID 01/08/22 05/04/23 tramadol 50 mg tablet 50 mg PO TID PRN Pain 01/08/22 05/04/23 cetirizine 10 mg capsule (Zyrtec) 10 mg PO DAILY 02/17/22 05/04/23 azathioprine 50 mg tablet 50 mg PO TID 04/09/22 05/04/23 diclofenac sodium 75 mg 75 mg PO BID 07/09/22 05/04/23 tablet,delayed release Allergies Allergy/AdvReac Type Severity Reaction Status Date / Time Penicillins Allergy Severe Anaphylaxis Verified 05/04/23 11:57 Review of Systems Constitutional: Constitutional: Reports as per HPI and Reports headache(s) Eyes: Eyes: Reports no additional eye complaints ENT: Reports as per HPI, Reports nasal congestion and Reports sinus pressure Cardiovascular: Cardiovascular: Reports no additional cardiovascular complaints Respiratory: Respiratory: Reports as per HPI, Reports chest congestion, Reports cough and Reports pain with cough Neurologic: Reports system reviewed and no additional complaints, except as documented PMF Past Medical History Medical History Allergies Arthritis Carpal tunnel syndrome Chronic congestion of paranasal sinus Depression Endometriosis Fibromyalgia GERD (gastroesophageal reflux disease) IBS (irritable bowel syndrome) Neuropathy Raynauds disease Rheumatoid arthritis Surgical History Surgical History History of bilateral tubal ligation History of hip surgery 01/2021 to remove nodules off hip. History of spinal fusion Previous section x3 Family History Family History Grandparent Malignant neoplasm of prostate Family history of malignant neoplasm of bone Cancer Mother Family history of malignant neoplasm of cervix Thyroid disorder Father Alcoholism Other Cancer Other Carcinoma of colon Family history of malignant neoplasm of breast Family history of malignant neoplasm of gastrointestinal tract Family history of malignant neoplasm of kidney Social History Social History Smoking status: Former smoker Second hand tobacco smoke exposure: No Smoking end date: 06/01/99 Alcohol intake: former Substance use: never Substance use type: does not use Lack of Transportation: No Lack of Food: Never True Current Housing: I Have Housing Concerned About Future Housing: No Difficulty Paying Gas/Electric Bills: No Difficulty Paying for Meds: No Currently Unemployed: No Education: Associate Degree Difficulty w/ Childcare or Family Care: No Living arrangements: with family Additional occupation/education comments: disabled Gender identity (if verbalized by the patient): Female Sexual Orientation (if Verbalized by the Patient): Straight or Heterosexual Spiritual care concerns: No Comments At the time of my signature, I reviewed and agree with the nursing past medical, surgical, social, and family history. There is no relevant family history pertinent to the patient complaint. Exam Const: General: cooperative, healthy appearing, no acute distress and well nourished N
== END 2023-05-04 12:30 | disposition home or self-care (01) ==
PROVIDERS: Emergency Provider Registered Nurse; PCP Internal Medicine
DX: J20.9 Acute bronchitis, unspecified (principal); Z87.891 Personal history of nicotine dependence; M19.90 Unspecified osteoarthritis, unspecified site; N80.9 Endometriosis, unspecified; M79.7 Fibromyalgia; K21.9 Gastro-esophageal reflux disease without esophagitis; M06.9 Rheumatoid arthritis, unspecified; I73.00 Raynaud's syndrome without gangrene; F32.A Depression, unspecified
CPT/HCPCS: 99213; G0463

== ENCOUNTER 2023-11-17 14:27 | Emergency (ER) | payer OTHER, MEDICARE, SELFPAY ==
--- NOTE | ~2023-11-17 | XR_ITS ---
EXAMINATION: XR chest 2V Exam Date/Time: 11/17/2023 15:15 CDT HISTORY: cough and chest tightness x 1 week Comparison: 05/06/2021. RESULT: Lines, tubes, and devices: None. Lungs and pleura: Clear. Cardiomediastinal silhouette: Stable. Other: No acute osseous or upper abdominal finding. IMPRESSION: No acute cardiopulmonary process. Reviewed, dictated and finalized at location K.
[2023-11-17 14:41] VITALS: BP 153/95; PULSE 87; RESP 14; TEMP 36.3; O2SAT 98
--- NOTE | 2023-11-17 14:50 | ECG_ITS ---
Test Date: 2023-11-17 15:01:58 Measurements Intervals [place] Rate: 77 P: 66 VA: 126 QRS: 36 QRSD: 83 T: 34 QT: 379 QTc: 429 Interpretive Statements SINUS RHYTHM LOW QRS VOLTAGE IN PRECORDIAL LEADS [QRS DEFLECTION < 1.0 mV IN CHEST LEADS] NONSPECIFIC T-WAVE ABNORMALITY No previous ECG available for comparison Electronically Signed On 11-18-2023 14:28:02 CDT by Jennifer Borges M.D.
--- NOTE | 2023-11-17 16:01 | ED.GENADULT ---
HPI - General Adult General Chief complaint: Upper Respiratory Infection Stated complaint: Congestion/Cough Source: patient Mode of arrival: ambulatory Limitations: no limitations History of Present Illness HPI narrative: Patient presents for evaluation of ongoing respiratory symptoms. Over the course the last week she has noted sinus congestion, postnasal drainage, cough, chest tightness, wheezing and mild shortness of breath. She indicates she initially had the symptoms in April of last year. She has been treated with several courses of doxycycline without improvement. She saw pulmonology. It sounds like she had pulmonary function test performed was told she does not have asthma. She had a CT scan of her chest was told she had a pulmonary nodule. She smoked a bit in high school but no longer smokes. She denies any fever, chills, nausea, vomiting. She cannot tolerate high-dose prednisone. She has not tried any cough suppressants. She has nebulizer treatments at home but does not feel like they help. They also make her feel jittery. She has an appt with a different quality improvement coordinator (rn) for a second opinion. She has a history of rheumatoid arthritis and was previously on immunosuppressants but is no longer on that type of therapy. Related Data Home Medications Medication Instructions Recorded Confirmed paroxetine HCl 30 mg tablet 30 mg PO DAILY 01/08/22 11/17/23 pregabalin 100 mg capsule 100 mg PO BID 01/08/22 11/17/23 tramadol 50 mg tablet 50 mg PO TID PRN Pain 01/08/22 11/17/23 cetirizine 10 mg capsule (Zyrtec) 10 mg PO DAILY 02/17/22 11/17/23 Allergies Allergy/AdvReac Type Severity Reaction Status Date / Time Penicillins Allergy Severe Anaphylaxis Verified 11/17/23 15:06 Review of Systems Review of Systems: CONSTITUTIONAL: Denies fever, chills, or sweats. EYES: Denies visual changes, redness, or discharge. ENT: Reports sinus congestion postnasal drainage. CARDIOVASCULAR: Reports chest tightness. Denies chest pain per se, palpitations, or edema. RESPIRATORY: Reports cough, wheezing, shortness of breath GASTROINTESTINAL: Denies abdominal pain, nausea, vomiting, or diarrhea. GENITOURINARY: Denies dysuria or hematuria. SKIN: Denies rash or itching. MUSCULOSKELETAL: Denies back pain, joint pain, or myalgia. NEUROLOGIC: Denies headache, numbness, dizziness, or weakness. PSYCHIATRIC: Denies anxiety or depression. [facility] Past Medical History Medical History Allergies Arthritis Carpal tunnel syndrome Chronic congestion of paranasal sinus Depression Endometriosis Fibromyalgia GERD (gastroesophageal reflux disease) IBS (irritable bowel syndrome) Neuropathy Raynauds disease Rheumatoid arthritis Surgical History Surgical History History of bilateral tubal ligation History of hip surgery 01/2021 to remove nodules off hip. History of spinal fusion Previous section x3 Family History Family History Grandparent Malignant neoplasm of prostate Family history of malignant neoplasm of bone Cancer Mother Family history of malignant neoplasm of cervix Thyroid disorder Father Alcoholism Other Cancer Other Carcinoma of colon Family history of malignant neoplasm of breast Family history of malignant neoplasm of gastrointestinal tract Family history of malignant neoplasm of kidney Social History Social History Smoking status: Former smoker Second hand tobacco smoke exposure: No Smoking end date: 06/01/99 Alcohol intake: former Substance use: never Substance use type: does not use Lack of Transportation: No Lack of Food: Never True Current Housing: I Have Housing Concerned About Future Housing: No Difficulty Paying Gas/Electric Bills:
== END 2023-11-17 16:00 | disposition home or self-care (01) ==
PROVIDERS: Emergency Provider Nurse Practitioner; PCP Internal Medicine
DX: R05.3 Chronic cough (principal); Z87.891 Personal history of nicotine dependence; M19.90 Unspecified osteoarthritis, unspecified site; N80.9 Endometriosis, unspecified; M79.7 Fibromyalgia; K21.9 Gastro-esophageal reflux disease without esophagitis; G62.9 Polyneuropathy, unspecified; I73.00 Raynaud's syndrome without gangrene; M06.9 Rheumatoid arthritis, unspecified; F32.A Depression, unspecified
CPT/HCPCS: 71046; 93005; 99213; G0463

== ENCOUNTER 2023-12-23 19:49 | Emergency (ER) | payer OTHER, MEDICARE, SELFPAY ==
[2023-12-23 19:56] VITALS: BP 146/90; PULSE 92; RESP 20; TEMP 36.1; O2SAT 100
--- NOTE | 2023-12-23 19:56 | ED.URI ---
HPI - URI/Sore Throat General Chief Complaint: Upper Respiratory Infection Stated Complaint: Sore Throat Time Seen by Provider: 12/23/23 19:57 Source: patient Mode of arrival: ambulatory Limitations: no limitations History of Present Illness HPI Narrative: 43-year-old female presents with complaint of nasal congestion, sore throat, fatigue, headache, body aches, bilateral ear pain for 3 days. Patient reports daughter had similar symptoms. Negative strep test. States she was exposed to someone with strep throat at cabin [place] staying [place]. All systems reviewed and negative except as noted above. Related Data Home Medications Medication Instructions Recorded Confirmed paroxetine HCl 30 mg tablet 30 mg PO DAILY 01/08/22 11/17/23 pregabalin 100 mg capsule 100 mg PO BID 01/08/22 11/17/23 Allergies Allergy/AdvReac Type Severity Reaction Status Date / Time Penicillins Allergy Severe Anaphylaxis Verified 11/17/23 15:06 Review of Systems Review of Systems: CONSTITUTIONAL: Denies fever, chills, or sweats. Reports fatigue. EYES: Denies visual changes, redness, or discharge. ENT: Reports rhinorrhea, congestion, sore throat, and bilateral ear pain CARDIOVASCULAR: Denies chest pain, palpitations, or edema. RESPIRATORY: Denies cough or dyspnea. GASTROINTESTINAL: Denies abdominal pain, nausea, vomiting, or diarrhea. GENITOURINARY: Denies dysuria or hematuria. SKIN: Denies rash or itching. MUSCULOSKELETAL: Denies back pain, joint pain, or myalgia. NEUROLOGIC: Reports headache. Denies numbness, or weakness. PSYCHIATRIC: Denies anxiety or depression. All other systems reviewed are negative, except as documented in HPI. [facility] Past Medical History Medical History Allergies Arthritis Carpal tunnel syndrome Chronic congestion of paranasal sinus Depression Endometriosis Fibromyalgia GERD (gastroesophageal reflux disease) IBS (irritable bowel syndrome) Neuropathy Raynauds disease Rheumatoid arthritis Surgical History Surgical History History of bilateral tubal ligation History of hip surgery 01/2021 to remove nodules off hip. History of spinal fusion Previous section x3 Family History Family History Grandparent Malignant neoplasm of prostate Family history of malignant neoplasm of bone Cancer Mother Family history of malignant neoplasm of cervix Thyroid disorder Father Alcoholism Other Cancer Other Carcinoma of colon Family history of malignant neoplasm of breast Family history of malignant neoplasm of gastrointestinal tract Family history of malignant neoplasm of kidney Social History Social History Smoking status: Former smoker Second hand tobacco smoke exposure: No Smoking end date: 06/01/99 Alcohol intake: former Substance use: never Substance use type: does not use Lack of Transportation: No Lack of Food: Never True Current Housing: I Have Housing Concerned About Future Housing: No Difficulty Paying Gas/Electric Bills: No Difficulty Paying for Meds: No Currently Unemployed: No Education: Associate Degree Difficulty w/ Childcare or Family Care: No Living arrangements: with family Additional occupation/education comments: disabled Gender identity (if verbalized by the patient): Female Sexual Orientation (if Verbalized by the Patient): Straight or Heterosexual Spiritual care concerns: No Comments At time of signature, agree with nursing past medical, surgical, social and family history. There is no relevant family history pertinent to the presenting complaint. Exam Narrative: GENERAL: This is a well-nourished, well-developed patient, ill-appearing but in no acute distress HEAD: normocephalic, a
[2023-12-23 20:13] LABS: EDSTREPNEGPOS1 Presumptive Negative
== END 2023-12-23 20:14 | disposition home or self-care (01) ==
PROVIDERS: Emergency Provider Nurse Practitioner Family; PCP Internal Medicine
DX: H65.03 Acute serous otitis media, bilateral (principal); J01.90 Acute sinusitis, unspecified; Z20.822 Contact with and (suspected) exposure to COVID-19; Z87.891 Personal history of nicotine dependence; M19.90 Unspecified osteoarthritis, unspecified site; N80.9 Endometriosis, unspecified; M79.7 Fibromyalgia; K21.9 Gastro-esophageal reflux disease without esophagitis; M06.9 Rheumatoid arthritis, unspecified; I73.00 Raynaud's syndrome without gangrene; G62.9 Polyneuropathy, unspecified
CPT/HCPCS: 87081; 87426; 87880; 99213; G0463

== ENCOUNTER 2024-05-10 12:21 | Outpatient (CLI) | payer OTHER, MEDICARE, SELFPAY ==
--- NOTE | ~2024-05-10 | MM_ITS ---
EXAMINATION: MM screening aidee BI w bolivar HISTORY: Screening TECHNIQUE: Craniocaudal and mediolateral oblique 3-D tomosynthesis images were obtained and synthetic 2-D images were generated. CAD analysis was submitted and interpreted. COMPARISON: Comparison to multiple prior studies sequentially, with oldest reviewed study dated 11/2021. BREAST PARENCHYMAL COMPOSITION: Not dense: There are scattered areas of fibroglandular density. FINDINGS: There is no evidence of suspicious mass, calcification, or architectural distortion to sugg est malignancy in either breast. There has been no suspicious interval change. IMPRESSION: 1. No mammographic evidence of malignancy. 2. Recommend routine screening mammography in one year. BI-RADS Category 1: Negative Reviewed, dictated and finalized at location B. ON MANAGER
== END 2024-05-10 12:22 | disposition home or self-care (01) ==
LOC: MICIMG 12:22
PROVIDERS: PCP Obstetrics & Gynecology; Visit Provider Obstetrics & Gynecology
DX: Z12.31 Encounter for screening mammogram for malignant neoplasm of breast (principal)
CPT/HCPCS: 77063; 77067

== ENCOUNTER 2024-06-30 09:59 | Emergency (ER) | payer OTHER, MEDICARE, SELFPAY ==
[2024-06-30 10:04] VITALS: BP 145/86; PULSE 85; RESP 20; TEMP 36.5; O2SAT 98
--- NOTE | 2024-06-30 10:06 | ED.URI ---
HPI - URI/Sore Throat General Chief Complaint: Upper Respiratory Infection Stated Complaint: sinus infection/ear pain Time Seen by Provider: 06/30/24 10:08 Source: patient and RN notes reviewed Mode of arrival: ambulatory Limitations: no limitations History of Present Illness HPI Narrative: 43-year-old female presented for complaint of nasal congestion, sinus pressure, right ear pain, and itchy eyes. Symptom onset over 2 weeks Endorses eyes are crusted in the morning. States the ear pain was significantly worse yesterday. take Zyrtec and Flonase on a daily basis. Denies shortness of breath, wheezing nausea, vomiting, fevers or chills. Does not wear contact lenses. denies vision changes. MD elicited complaint: cough Related Data Home Medications ?Medication ?Instructions ?Recorded ?Confirmed ?Last Taken ?Type paroxetine HCl 30 mg tablet 30 mg PO DAILY 01/08/22 11/17/23 Unknown History pregabalin 100 mg capsule 100 mg PO BID 01/08/22 11/17/23 Unknown History budesonide-formoterol HFA 80 inhalation 06/30/24 Unknown History mcg-4.5 mcg/actuation aerosol inhaler (Symbicort) diclofenac sodium 75 mg mg PO 06/30/24 Unknown History tablet,delayed release paroxetine HCl 40 mg tablet mg PO 06/30/24 Unknown History tramadol 50 mg tablet mg 06/30/24 Unknown History Allergies Allergy/AdvReac Type Severity Reaction Status Date / Time Penicillins Allergy Severe Anaphylaxis Verified 06/30/24 10:08 Review of Systems Review of Systems: per HPI [facility] Past Medical History Medical History IBS (irritable bowel syndrome) GERD (gastroesophageal reflux disease) Arthritis Allergies Chronic congestion of paranasal sinus Rheumatoid arthritis Carpal tunnel syndrome Depression Endometriosis Fibromyalgia Neuropathy Raynauds disease Surgical History Surgical History History of hip surgery 01/2021 to remove nodules off hip. History of spinal fusion History of bilateral tubal ligation Previous section x3 Family History Family History Grandparent Malignant neoplasm of prostate Family history of malignant neoplasm of bone Cancer Mother Family history of malignant neoplasm of cervix Thyroid disorder Father Alcoholism Other Cancer Other Carcinoma of colon Family history of malignant neoplasm of breast Family history of malignant neoplasm of gastrointestinal tract Family history of malignant neoplasm of kidney Social History Social History Smoking status: Former smoker Second hand tobacco smoke exposure: No Smoking end date: 06/01/99 Alcohol intake: former Substance use: never Substance use type: does not use Lack of Transportation: No Lack of Food: Never True Current Housing: I Have Housing Concerned About Future Housing: No Difficulty Paying Gas/Electric Bills: No Difficulty Paying for Meds: No Currently Unemployed: No Education: Associate Degree Difficulty w/ Childcare or Family Care: No Living arrangements: with family Additional occupation/education comments: disabled Gender identity (if verbalized by the patient): Female Sexual Orientation (if Verbalized by the Patient): Straight or Heterosexual Spiritual care concerns: No Exam Narrative: GENERAL: well-appearing, nontoxic EYES: PERRLA, conjunctivae clear, bilateral purulent drainage ENT: Mucous membranes moist. TMs pearly connor with dull light reflex bilaterally; no tragal tenderness. Oropharynx not erythematous without lesions or exudate, no drooling, no hoarseness, no trismus, uvula midline. No tripod positioning, muffled voice, soft palate or pharyngeal wall bulging NECK: Supple. No lymphadenopathy CHEST: Clear to auscultation, breath sounds equal. No wheezing, rhonchi, rales, or stridor. No respiratory distress, speaks in full sentences. HEART: Regular rate and rhythm. No murmur heard. SKIN: Warm, dry, no rash. NEURO: Alert and oriented x3. PSYCH: Normal mood and affect Course Course Emergency Course: Patient is aware of diagnosis, understands and agrees to treatment plan. Anticipatory guidance given. Patient agrees to follow-up as directed and is aware of reasons to seek care at the emergency department. Portions of this record may have been created with voice recognition software Level of Care: Express Care Visit Vital Signs Vital signs: Vital Signs Temperature 97.7 F 06/30/24 10:04 Pulse Rate 85 06/30/24 10:04 Respiratory Rate 20 06/30/24 10:04 Blood Pressure 145/86 H 06/30/24 10:04 Pulse Oximetry 98 06/30/24 10:04 Oxygen Delivery Room Air 06/30/24 10:04 Temperature 97.7 F 06/30/24 10:04 Pulse Rate 85 06/30/24 10:04 Respiratory Rate 20 06/30/24 10:04 Blood Pressure 145/86 H 06/30/24 10:04 Pulse Oximetry 98 06/30/24 10:04 Oxygen Delivery Room Air 06/30/24 10:04 reviewed MDM - URI/Sore Throat MDM Narrative Medical decision making narrative: Discussed physical exam findings c/w sinusitis and will cover for bacterial conjunctivitis. Advised supportive measures and signs/symptoms to go to the ER. Pt is appropriate for outpt treatment and f/u. Differential Diagnosis Differential diagnosis: Likely upper respiratory infection, otitis media, sinusitis, viral infection, bronchitis, influenza and pharyngitis Discharge Plan Discharge Clinical Impression: Sinusitis, Conjunctivitis Patient Disposition: Home, Self-Care Condition: Stable Instructions: Antibiotic Form, Rhinosinusitis (ED), Conjunctivitis (ED) Additional Instructions: Avoid touching or rubbing your eye. Use over the counter lubricating eye drops as needed for irritation Use a warm or cool washcloth on your eye for comfort Use eyedrops as directed - you are contagious for 24 hours after starting the antibiotic Practice good handwashing and hygiene to prevent spread of infection Use new makeup, lashes, lenses etc. after symptoms resolve You may take Tylenol or ibuprofen for pain Recommend Flonase spray and Zyrtec (or Claritin/Abigail) over the counter Cough syrup may cause drowsiness; avoid driving or take it at night time. Tylenol 1000mg every 8 hours as needed for pain Symptomatic treatment includes: rest, fluids, and increase humidity of the air at home. Follow up with your primary care provider in 1 week. Go to the ER for worsening symptoms or concerns. Patient Language: Bahraini Prescriptions: New polymyxin B sulf-trimethoprim 10,000 unit- 1 mg/mL drops 1 drp EACH EYE Q3H 7 Days Qty: 10 0RF Rx Instructions: while awake; do not exceed 6 doses in 24 hours doxycycline hyclate 100 mg tablet 100 mg PO BID 7 Days Qty: 14 0RF No Action tramadol 50 mg tablet diclofenac sodium 75 mg tablet,delayed release (DR/EC) PO paroxetine HCl 40 mg tablet PO budesonide-formoterol [Symbicort] 80-4.5 mcg/actuation HFA aerosol inhaler INHALATION pregabalin 100 mg capsule 100 mg PO BID paroxetine HCl 30 mg tablet 30 mg PO DAILY azithromycin 250 mg tablet See Rx Instructions .ROUTE .COMPLEX Qty: 6 0RF Rx Instructions: For 250 mg dose pack: take 500 mg today (day 1), then 250 mg for 4 days (days 2-5) norgestimate-ethinyl estradiol [Ortho Tri-Cyclen (28)] 0.18/0.215/0.25 mg-35 mcg (28) tablet 1 tablet PO DAILY Qty: 84 1RF Follow-up/Referrals: Isa Alves MD [Primary Care Provider] -
--- OUTSIDE RECORDS SUMMARY | 2024-06-30 10:35 | XMS_ITS | Encounter Summary ---
Author Organization [facility] Address [address] [place] [address] Phone Care Team Providers Care Nut Cracker Name Role Phone Isa Alves MD Primary Care Provider [phone] Encounter Details Date Type Department Care Team (Latest Contact Info) Description 02/17/2023 Transcribe Orders [facility] II [address] [place] [id number] Lenny Austin, DPM [address] [place] [address] Pre-op testing (Primary Dx) Social History Tobacco Use Types Packs/Day Years Used Date Smoking Tobacco: Former Cigarettes 1 3 0 06/29/1998 - 06/29/2001 Smokeless Tobacco: Never Alcohol Use Standard Drinks/Week Comments Never 0 (1 standard drink = 0.6 oz pur e alcohol) Sexually Active Control Partners Comments Yes None, Surgical Male Comments No Sex and Gender Information Value Date Recorded Sex Assigned at Not on file Legal Sex Female 8:35 PM CDT Gender Identity Not on file Sexual Orientation Not on file documented as of this encounter Plan of Treatment Not on file documented as of this encounter Visit Diagnoses Diagnosis Pre-op testing- Primary Preoperative examination, unspecified documented in this encounter Care Teams Nut Cracker Relationship Specialty Start Date End Date Isa Alves MD [address] [place] [address] PCP - General Internal Medicine 06/08/17 documented as of this encounter
--- OUTSIDE RECORDS SUMMARY | 2024-06-30 10:35 | XMS_ITS | Referral Summary ---
Author Organization [facility] Address [address] [place] [address] Care Team Providers Care Loan Processor Name Role Phone Isa Alves MD Primary Care Provider [phone]- [phone] Anay Sanches PT Unavailable Unavailable Encounters Date Type Department Care Team Description 05/03/2024 7:13 PM RESEARCH ASSOCIATE - 05/03/2024 11:45 PM [facility] Emergency [facility] Emergency Department [id number] [place] [address] Verona Raygoza MD Rahhal, Ghady Al, MD Shortness of breath (Primary Dx); Cough, unspecified type Discharge Disposition: Discharge to home or self care from Last 3 Months Allergies Active Allergy Reactions Criticality Noted Date Comments Adhesive Other (See comments) Low Reaction: rips her skin off., She has problems with dissovable stitches. Erythromycin Penicillins Other (See comments),Hives High Reaction: Anaphylaxis, , Reaction: Other, , , Reaction: HIVES Prednisolone Sod Ph-Peak Flow Itching,Other (See comments) Low 09/02/2021 Tongue swelling Prednisone Rash Medium 11/08/2021 Medications celecoxib (CeleBREX) 200 mg capsule TAKE 1 CAPSULE BY MOUTH EVERY DAY NEEDED 30 capsule 7 Active fluticasone (FLONASE) 50 mcg/actuation nasal spray Administer 1 spray into each nostril daily Active multivitamin capsule Take 1 capsule by mouth daily Active methotrexate, PF, 25 mg/mL preservative free injection 0 Active folic acid (FOLVITE) 1 mg tablet 0 Active golimumab (SIMPONI ARIA IV) Infuse into a venous catheter Active esomeprazole DR (NexIUM) 40 mg capsule Take 1 capsule (40 mg total) by mouth daily before breakfast Active famotidine (PEPCID) 40 mg tabletIndications :Laryngeal spasm Take 1 tablet (40 mg total) by mouth nightly 90 tablet 3 2 Active PARoxetine (PAXIL) 30 mg tablet Take 30 mg by mouth nightly 2 Active cyclobenzaprine (FLEXERIL) 10 mg tablet Take 1 tablet (10 mg total) by mouth 2 (two) times a day as needed for muscle spasms 20 tablet 2 Active pregabalin (LYRICA) 100 mg capsule Take 1 capsule (100 mg total) by mouth 2 (two) times a day Active traMADoL (ULTRAM) 50 mg tabletIndications :Neuropathic Pain,Pain Take 1 tablet (50 mg total) by mouth every 8 (eight) hours as needed for pain Active azaTHIOprine (IMURAN) 50 mg tablet Take 1 tablet (50 mg total) by mouth 2 (two) times a day Active cetirizine (ZyrTEC) 10 mg tablet Take 1 tablet (10 mg total) by mouth daily Active diclofenac DR (VOLTAREN) 75 mg EC tablet Take 1 tablet (75 mg total) by mouth 2 (two) times a day Active Active Problems Problem Noted Date Diagnosed Date Low back pain, non-specific 06/16/2022 Assessment & Plan (06/16/2022 9:32 AM RESEARCH ASSOCIATE): Ms. Huntley had previous 360 fusion at L4-S1 by Dr. Carl in 2017. Patient has primarily pain above her surgical site without radicular symptoms of her lower extremities. She has some residual numbness of her right lower extremity which is unchanged from previous. Reviewed MRI, x-rays with the patient and explained there are no disc bulging, herniated disc, adjacent level stenosis to warrant her symptoms at this time. Surgery is not indicated. Would recommend pain management in the form of injections. Patient verbalizes understanding and would like to proceed with plan of care. Will send a referral to Dr. Coleman in [facility]. Patient to follow up on an as needed basis. Thyroid nodule 09/02/2021 Assessment & Plan (09/02/2021 12:50 PM CDT): Right thyroid lobe nodule 1.6 cm Detected on thyroid ultrasound on 08/14/21 Patient is clinically euthyroid TSh was normal at 2.5 on 08/13/21 Thyroid cancer needs to be excluded Plan: The abnormality on thyroid ultrasound reviewed and explained to patient. I recommended FNA biopsy of the thyroid nodule to rule out cancer Thyroid surgery if biopsy showed cancer, otherwise can be monitored if benign by repeat ultrasound in 6-12 month. Patient understands and agrees with above plan. 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 If she would like me to write for some formal physical therapy I would be happy to do so. I think some ultrasound to the cervical spine in periscapular and trapezius area would be beneficial for her. I feel that most of her headaches are triggered due to myofascial pain. If she continues to report headaches and neck pain she may call the office and I can order an MRI of cervical spine. Degenerative disc disease, lumbar 12/28/2019 Assessment & Plan (12/28/2019 12:04 PM CDT): Assessment: Mild degenerative disc disease L3-4 L4-5 and L5-S1 anterior posterior lumbar fusion well-healed Plan: I recommend that she attend some aquatic physical therapy. She would like to hold off at this point in time. If she would like to move forward with that she is simply to give the office a call. Hypertriglyceridemia 04/01/2017 Fibromyalgia 03/16/2017 Polycystic ovaries 01/09/2016 Overview (09/05/2016): PCOS Depression 06/22/2014 Overview (09/03/2016): Depression Atopic rhinitis 10/15/2013 Overview (09/03/2016): Allergic rhinitis Headache 10/15/2013 Overview (09/03/2016): Mixed headache Endometriosis 10/15/2013 Overview (09/05/2016): Endometriosis Carpal tunnel syndrome 10/15/2013 Overview (09/05/2016): Carpal tunnel syndrome Costochondritis 06/15/2013 Overview (09/05/2016): Costochondritis Irritable bowel syndrome 02/25/2013 Overview (09/05/2016): IBS (irritable bowel syndrome) Assessment & Plan (06/29/2018 2:43 PM RESEARCH ASSOCIATE): Many yrs of ibs with alternating C/D and chroinic RUQ pain. [address] CT for RUQ pain. Perry had evan. Colonoscopy 06/[address] last month. Opined that the RUQ pain is chronic and part of her ibs and fibromyalgia and do not think further testing is warranted but trial of hi fiber diet. Return prn Tarsal tunnel syndrome 05/28/2011 Overview (09/03/2016): Tarsal tunnel syndrome Coughing SOB (shortness of breath) Immunizations Name Administration Dates Next Due Influenza, Quadrivalent, Spl it, Preservative Free, Intramuscular 03/16/2017,03/01/2016 Influenza, Split 04/19/2010 Influenza, Trivalent, IM (MDV) 5,03/07/2015,03/16/2013,02/24 Tdap 06/16/2012 Social History Tobacco Use Types Packs/Day Years Used Date Smoking Tobacco: Former Cigarettes 0.5 6 1 5 - 2000 Smokeless Tobacco: Never Tobacco Cessation:Counseling Given: Not Answered Comments:pt stated she smoke as a teen Alcohol Use Standard Drinks/Week Comments Yes 0 (1 standard drink = 0.6 oz pur e alcohol) rare AUDIT-C Answer Date Recorded Q1: How often do you have a drink containing alc ohol? 2-4 times a month 06/16/2022 Q2: How many drinks containi ng alcohol do you have on a typical day when you are drinking? 1 or 2 06/16/2022 Q3: How often do you have si x or more drinks on one occasion? Never 06/16/2022 PHQ-2 Answer Date Recorded PHQ-2 Total Score (If total score is 3 or more points, staff should administer the PHQ-9) 1 06/16/2022 Personal Safety Answer Date Recorded Have you ever been in or are you currently in a harmful physical or emotional relationship or is someone making you feel afraid or unsafe? Denies 05/03/2024 Comments No Sex and Gender Information Value Date Recorded Sex Assigned at Not on file Legal Sex Female 12:33 AM RESEARCH ASSOCIATE Gender Identity Not on file Sexual Orientation Not on file Last Filed Vital Signs Vital Sign Reading Time Taken Comments Blood Pressure 130/82 05/03/2024 10:47 PM RESEARCH ASSOCIATE Pulse 76 05/03/2024 10:47 PM RESEARCH ASSOCIATE Temperature 36.9 ??C (98.4 ??F) 05/03/2024 10:[address] Respiratory Rate 14 05/03/2024 10:47 PM RESEARCH ASSOCIATE Oxygen Saturation 99% 05/03/2024 10:47 PM RESEARCH ASSOCIATE Inhaled Oxygen Concentration - - Weight 122.5 kg (270 lb) 05/03/2024 5:50 PM RESEARCH ASSOCIATE Height 162.6 cm (5' 4 ) 05/03/2024 5:50 PM RESEARCH ASSOCIATE Body Mass Index 46.35 05/03/2024 5:50 PM RESEARCH ASSOCIATE Plan of Treatment Not on file Procedures Procedure Name Priority Date/Time Associated Diagnosis Comments CT CHEST PE W CONTRAST ED 9:29 PM RESEARCH ASSOCIATE URINALYSIS AND REFLEX TO MICROSCOPIC AND CULTURE STAT 05/03/2024 9:20 PM RESEARCH ASSOCIATE TROPONIN T HIGH-SENSITIVITY 2-HOUR Timed 05/03/2024 8:22 PM RESEARCH ASSOCIATE XR CHEST 1 VIEW ED 05/03/2024 6:07 PM RESEARCH ASSOCIATE HCG, BLOOD, QUANTITATIVE STAT 05/03/2024 6:01 PM RESEARCH ASSOCIATE EGFR STAT 05/03/2024 6:01 PM RESEARCH ASSOCIATE DIFFERENTIAL AUTO STAT 05/03/2024 6:0 1 PM RESEARCH ASSOCIATE TROPONIN T HIGH-SENSITIVITY SERIES (BASELINE, 2HR, 4HR, 6HR) STAT 05/03/2024 6:01 PM RESEARCH ASSOCIATE COMPREHENSIVE METABOLIC PANEL STAT 05/03/2024 6:01 PM RESEARCH ASSOCIATE CBC WITH AUTO DIFFERENTIAL STAT 05/03/2024 6:01 PM RESEARCH ASSOCIATE PRO B-TYPE NATRIURETIC PEPTIDE STAT 05/03/2024 6:01 PM RESEARCH ASSOCIATE RESPIRATORY PATHOGEN PANEL STAT 05/03/2024 5:57 PM RESEARCH ASSOCIATE ECG 12-LEAD STAT 05/03/2024 5:48 PM RESEARCH ASSOCIATE from Last 3 Months Results * CT Chest PE (CTA) W Contrast (05/03/2024 9:29 PM RESEARCH ASSOCIATE) Anatomical Region Laterality Modality Body N/A Computed Tomogra phy 05/03/2024 9:25 PM RESEARCH ASSOCIATE Impressions 05/04/2024 7:48 AM RESEARCH ASSOCIATE 1. ?? No pulmonary artery emboli. 2. ?? Ectatic ascending thoracic aorta measuring 3.5 cm in AP dimension. No aortic aneurysm or dissection. 3. ?? No pulmonary infiltrates. Stat report by [facility] Electronically signed by: Robin Youngblood M.D. Narrative 05/04/2024 7:48 AM RESEARCH ASSOCIATE EXAMINATION: CT CHEST PE (CTA) W CONTRAST HISTORY: Chest pain ORDER DATE: 05/03/2024 9:25 PM TECHNIQUE: ?? CT chest images were acquired using a chest angiographic protocol with 3-D imaging optimized for PE ??is obtained utilizing 92 mL of Optiray 350 IV. 2D Coronal and sagittal reformats were obtained. ?? 3-D rendering (not supervised by radiologist) MIP and/or 3-D reconstructed images were created by the technologist. COMPARISON: CT CHEST PE (CTA) W CONTRAST 08/02/2021 ?? FINDINGS: Pulmonary arteries: Normal. No pulmonary emboli. Aorta: Ectatic ascending thoracic aorta measuring 3.5 cm in AP dimension. No aortic aneurysm. No aortic dissection. Lungs: Unremarkable. No consolidation. No masses. Pleural spaces: Unremarkable. No pneumothorax. No pleural effusion. Heart: Unremarkable. No cardiomegaly. No pericardial effusion. Lymph nodes: Unremarkable. No enlarged lymph nodes. Gallbladder and biliary ducts: Cholecystectomy. Bones/joints: No acute fracture. Soft tissues: Unremarkable. Procedure Note Robin Youngblood MD - 05/04/2024 EXAMINATION: CT CHEST PE (CTA) W CONTRAST HISTORY: Chest pain ORDER DATE: 05/03/2024 9:25 PM TECHNIQUE: CT chest images were acquired using a chest angiographic protocol with 3-D imaging optimized for PE is obtained utilizing 92 mL of Optiray 350 IV. 2D Coronal and sagittal reformats were obtained. 3-D rendering (not supervised by radiologist) MIP and/or 3-D reconstructed images were created by the technologist. COMPARISON: CT CHEST PE (CTA) W CONTRAST 08/02/2021 FINDINGS: Pulmonary arteries: Normal. No pulmonary emboli. Aorta: Ectatic ascending thoracic aorta measuring 3.5 cm in AP dimension. No aortic aneurysm. No aortic dissection. Lungs: Unremarkable. No consolidation. No masses. Pleural spaces: Unremarkable. No pneumothorax. No pleural effusion. Heart: Unremarkable. No cardiomegaly. No pericardial effusion. Lymph nodes: Unremarkable. No enlarged lymph nodes. Gallbladder and biliary ducts: Cholecystectomy. Bones/joints: No acute fracture. Soft tissues: Unremarkable. IMPRESSION: 1. No pulmonary artery emboli. 2. Ectatic ascending thoracic aorta measuring 3.5 cm in AP dimension. No aortic aneurysm or dissection. 3. No pulmonary infiltrates. Stat report by [facility] Electronically signed by: Robin Youngblood M.D. Verona Raygoza MD IMG CT PROCEDURES Final Result * Urinalysis reflex to microscopic and culture Urine (05/03/2024 9:20 PM RESEARCH ASSOCIATE) Color, ur Yellow Yellow Clarity, ur Clear Clear [facility] Specific gravity, ur 1.016 1.003 - 1.030 CERNER [facility] pH, urine 5.5 [facility] Comment: Interpretive Data ? Urine pH is affected by diet, medications, systemic acid-base disturbances, and renal tubular function. ??pH may affect urinary stone formation. ??For example, urine pH below 6.0 may help reduce the tendency for calcium phosphate stones and pH greater than 6.0 may reduce the tendency for uric acid stone formation. Source: [facility] [employer] Current Interpretive Data was last revised on 2017 Protein, ur ql Negative Negative CERNER [facility] Glucose, ur ql Negative Negative [facility] Ketones, ur Negative Negative [facility] Bilirubin, ur Negative Negative [facility] Blood, ur Negative Negative [facility] Urobilinogen, ur <2.0 <2.0 mg/dL [facility] Nitrite, ur Negative Negative [facility] Leukocyte esterase, ur Negative Negative [facility] UA reflex comment Reflex conditions for microscopic UA and culture not met. [facility]ERNER [facility] Urine 05/03/2024 9:20 PM RESEARCH ASSOCIATE 05/03/2024 9:35 PM RESEARCH ASSOCIATE Tierney PARKER LAB MICROBIOLOGY - GENERAL OR DERABLES Final Result [facility] [address] Department [place] [address] * Troponin T high-sensitivity 2-hour (05/03/2024 8:22 PM RESEARCH ASSOCIATE) Trop T hs <6 <=14 ng/L Comment: Interpretive Data For further hscTnT resources including the diagnostic algorithm and an aid in interpretation, copy and paste this link: https://nrl.testcatalog.org/show/hsTrop Current Interpretive Data last revised 2020. Trop T hs delta 0 ng/L CERHIRAM [facility] Trop T hs interp Insignificant [facility] SANCHES Blood 05/03/2024 8:22 PM RESEARCH ASSOCIATE 05/03/2024 8:25 PM RESEARCH ASSOCIATE us Tierney PARKER LAB BLOOD ORDERABLES Final Re sult [facility] SANCHES [address] Department [place] [address] * XR Chest 1 Vw Portable (05/03/2024 6:07 PM RESEARCH ASSOCIATE) Anatomical Region Laterality Modality Body, Chest N/A Computed Radiogr aphy 05/03/2024 6:33 PM RESEARCH ASSOCIATE Impressions 05/03/2024 6:33 PM RESEARCH ASSOCIATE No active disease. Electronically signed by: Marian Ochoa M.D. Narrative 05/03/2024 6:33 PM RESEARCH ASSOCIATE EXAMINATION: XR CHEST 1 VIEW HISTORY: The patient is a 43-year-old female who presents with chest pain. Comparison made with the previous study dated 12/28/2019 TECHNIQUE: AP portable view of the chest. FINDINGS: Lungs clear. ??Cardiovascular structures unremarkable. Procedure Note Marian Ochoa MD - 05/03/2024 EXAMINATION: XR CHEST 1 VIEW HISTORY: The patient is a 43-year-old female who presents with chest pain. Comparison made with the previous study dated 12/28/2019 TECHNIQUE: AP portable view of the chest. FINDINGS: Lungs clear. Cardiovascular structures unremarkable. IMPRESSION: No active disease. Electronically signed by: Marian Ochoa M.D. us Tierney PARKER IMG XR PROCEDURES Final Resul t * Troponin T high-sensitivity series (baseline, 2hr, 4hr, 6hr) (05/03/2024 6:01 PM RESEARCH ASSOCIATE) Pathologist [facility] Trop T hs <6 <=14 ng/L Comment: Interpretive Data For further hscTnT resources including the diagnostic algorithm and an aid in interpretation, copy and paste this link: https://nrl.testcatalog.org/show/hsTrop Current Interpretive Data last revised 2020. Blood 05/03/2024 6:01 PM RESEARCH ASSOCIATE 05/03/2024 6:01 PM RESEARCH ASSOCIATE us Tierney PARKER LAB BLOOD ORDERABLES Final Re sult [facility] [id number] Department [place] [address] * eGFR (05/03/2024 6:01 PM RESEARCH ASSOCIATE) Pathologist [facility] eGFR 88 >=60 mL/min/1. 73 m2 Comment: Interpretive Data Reference Interval Normal ?>/= 90 mL/min/1.73m2 Mildly decreased* ? 60 - 89 mL/min/1.73m2 Mildly to moderately decreased ?45 - 59 mL/min/1.73m2 Moderately to severely decreased ??30 - 44 mL/min/1.73m2 Severely decreased ?15 - 29 mL/min/1.73m2 Kidney Failure ?< 15 ??mL/min/1.73m2 *Relative to young adult level Estimated glomerular filtration rate is determined by the 2020 CKD-EPI equation recommended by the National Kidney Foundation (A Unifying Approach to GFR Estimation: Recommendations of the NKF-ASK Task Force on Reassessing the Inclusion of Race in Diagnosing Kidney Disease, JASN 2020). The CKD-EPI equation should not be used for patients with unstable renal function and has not been validated in children and those over 70. Current interpretive data was last reviewed 2021. Blood 05/03/2024 6:01 PM RESEARCH ASSOCIATE 05/03/2024 6:01 PM RESEARCH ASSOCIATE us Tierney PARKER LAB BLOOD ORDERABLES Final Re sult [facility] [id number] Department [place] [address] * Differential, auto (05/03/2024 6:01 PM RESEARCH ASSOCIATE) Neutrophil abs 5.9 1.5 - 6.5 K/cumm Imm gran abs 0.0 0.0 - 0.1 K/cumm [facility] Lymphocyte abs 2.4 0.8 - 3.3 K/cumm [facility] Monocyte abs 0.6 0.2 - 0.8 K/cumm [facility] Eosinophil abs 0.3 0.0 - 0.5 K/cumm [facility] Basophil abs 0.1 0.0 - 0.1 K/cumm [facility] Neutrophil pct 64.0 % [facility] Comment: Interpretive Data Percent cell count reference ranges are not reported, since discordance with absolute values may lead to misinterpretation of CBC data. Current Interpretive Data was last revised on 2017. Imm gran pct 0.3 % [facility] Comment: Interpretive Data Percent cell count reference ranges are not reported, since discordance with absolute values may lead to misinterpretation of CBC data. Current Interpretive Data was last revised on 2017. Lymphocyte pct 25.5 % [facility] Comment: Interpretive Data Percent cell count reference ranges are not reported, since discordance with absolute values may lead to misinterpretation of CBC data. Current Interpretive Data was last revised on 2017. Monocyte pct 6.5 % [facility] Comment: Interpretive Data Percent cell count reference ranges are not reported, since discordance with absolute values may lead to misinterpretation of CBC data. Current Interpretive Data was last revised on 2017. Eosinophil pct 2.7 % [facility] Comment: Interpretive Data Percent cell count reference ranges are not reported, since discordance with absolute values may lead to misinterpretation of CBC data. Current Interpretive Data was last revised on 2017. Basophil pct 1.0 % [facility] Comment: Interpretive Data Percent cell count reference ranges are not reported, since discordance with absolute values may lead to misinterpretation of CBC data. Current Interpretive Data was last revised on 2017. Blood 05/03/2024 6:01 PM RESEARCH ASSOCIATE 05/03/2024 6:01 PM RESEARCH ASSOCIATE us Tierney PARKER LAB BLOOD ORDERABLES Final Re sult [facility] [address] Department [place] [address] * Pro B-type natriuretic peptide (05/03/2024 6:01 PM RESEARCH ASSOCIATE) NT-proBNP 42 <=300 pg/mL Comment: Interpretive Comments: A. Dyspnea in Acute Care Setting All Ages: ?< 300 pg/ml, acute heart failure unlikely. < 50 yrs: ?300 - 450 pg/ml, further investigation warranted. ? > 450 pg/ml, acute heart failure likely. 50 - 74 yrs: ? 300 - 900 pg/ml, further investigation warranted. ? > 900 pg/ml, acute heart failure likely . > or = 75 yrs: ? 450 - 1800 pg/ml, further investigation warranted. ? > 1800 pg/ml, acute heart failure likely. B. Non-acute Setting < 75 yrs ? < 125 pg/ml, rules out heart failure. ? > or = 125 pg/ml, further investigation warranted. > or = 75 yrs ?< 450 pg/ml, rules out heart failure. ? > or = 450 pg/ml, further investigation warranted. - Knowledge of each individual patient's NT-proBNP range may be more useful than using similar cut-points for every patient. Please note that marked elevations in NT-proBNP levels may be observed in state other than Left Ventricular Congestive Failure, including: acute coronary syndromes, right heart strain/failure (including pulmonary embolism and cor pulmonale), critical illness, renal failure, as well as advanced age. - References: 1. Tia IRENE et.al. Eur Heart J. 2006:27:330-337. 2. Theresa RW, Rufina AM. J. AM Gabriella Cardiol: Cardiovasc Imag. 2009;2: 216- 225. Interpretive Data Last Revised Date: 2018. Blood 05/03/2024 6:01 PM RESEARCH ASSOCIATE 05/03/2024 6:01 PM RESEARCH ASSOCIATE Tierney PARKER LAB BLOOD ORDERABLES Final Re sult [facility] [address] Department of Laboratories [place], [place] [phone] * (ABNORMAL) CBC with auto differential (05/03/2024 6:01 PM RESEARCH ASSOCIATE) WBC 9.3 3.8 - 9.9 K/cumm Hgb 11.7(L) 11.9 - 15.5 g/dL [facility] Hct 36.4 35.6 - 45.5 % [facility] Plt 347 150 - 400 K/cumm [facility] Comment:No clot detected in sample. MPV 9.6 9.1 - 12.3 fL [facility] RBC 4.22 3.90 - 5.20 M/cumm [facility] MCV 86.3 81.3 - 96.4 fL [facility] MCH 27.7 27.1 - 33.3 pg [facility] MCHC 32.1(L) 32.3 - 35.7 g/dL [facility] RDW CV 13.9 11.1 - 14.9 % [facility] RDW SD 44.0 35.7 - 48.1 fL [facility] NRBC abs 0.00 0.00 - 0.01 K/cumm [facility] Blood 05/03/2024 6:01 PM RESEARCH ASSOCIATE 05/03/2024 6:01 PM RESEARCH ASSOCIATE Tierney PARKER LAB BLOOD ORDERABLES Final Re sult Performing Organization Address [facility]/ZIP Co de Phone Number [facility] [id number] [employer] [place], [place] [phone] * hCG, blood, quantitative (05/03/2024 6:01 PM RESEARCH ASSOCIATE) Pathologist [facility] hCG, quant <0.1 0.0 - 5.0 IUnits/L Comment: Interpretive Data Male: < 5 IU/L Non- premenopausal Female: <5 IU/L The [employer] hCG Beta Quant assay procedure was used. Results from different manufacturers or methods may not be comparable. ??Serial testing should be performed using the same method. Interpretive Data was last revised on 2023 Blood 05/03/2024 6:01 PM RESEARCH ASSOCIATE 05/03/2024 7:54 PM RESEARCH ASSOCIATE Verona Raygoza MD LAB BLOOD ORDERABLES Fi nal Result Performing Organization Address [facility] Co de Phone Number [facility] [address] [employer] [place], [place] [phone] * (ABNORMAL) Comprehensive metabolic panel (05/03/2024 6:01 PM RESEARCH ASSOCIATE) Pathologist [facility] Sodium 136 135 - 145 mmol/L Potassium, pl 4.3 3.3 - 4.9 mmol/L [facility] Chloride 102 97 - 110 mmol/L [facility] CO2 19(L) 22 - 32 mmol/L [facility] Anion gap 15 2 - 15 mmol/L [facility] BUN 9 6 - 25 mg/dL [facility] Creatinine 0.85 0.60 - 1.10 mg/dL [facility] Glucose 94 70 - 199 mg/dL [facility] Comment: Interpretive Data Fasting glucose >/= 126 mg/dl is diagnostic for diabetes. ?? Fasting is defined as no caloric intake for at least 8 hours. Fasting glucose between 100 mg/dl to 125 mg/dl is diagnostic of prediabetes. In a patient with classic symptoms of hyperglycemia or hyperglycemic crisis, a random glucose >/= 200 mg/dl is diagnostic for diabetes. In the absence of unequivocal hyperglycemia, results should be confirmed by repeat testing. The classification and Diagnosis of Diabetes Diabetes Care 2021; 46: S19-S40. Current interpretive data was last revised 2022. Calcium 9.1 8.5 - 10.3 mg/dL [facility] Bilirubin, total 0.3 0.1 - 1.2 mg/dL [facility] Protein, pl 7.2 6.5 - 8.5 g/dL [facility] Albumin 3.8 3.5 - 5.0 g/dL [facility] Alk phos 109 40 - 130 Units/L [facility] ALT 16 7 - 45 Units/L [facility] AST 23 10 - 45 Units/L [facility] Blood 05/03/2024 6:01 PM RESEARCH ASSOCIATE 05/03/2024 6:01 PM RESEARCH ASSOCIATE us Tierney PARK[facility] BLOOD ORDERABLES Final Re sult [facility] [id number] [address] Department [place] [address] * Respiratory pathogen panel Nasopharyngeal (05/03/2024 5:57 PM RESEARCH ASSOCIATE) Pathologist [facility] Influenza A RNA Not Detected Not Detected Influenza B RNA Not Detected Not Detected [facility] RSV RNA Not Detected Not Detected [facility] COVID-19 RNA Not Detected Not Detected [facility] Coronavirus 229E RNA Not Detected Not Detected [facility] Coronavirus HKU1 RNA Not Detected Not Detected [facility] Coronavirus NL63 RNA Not Detected Not Detected [facility] Coronavirus OC43 RNA Not Detected Not Detected [facility] Adenovirus DNA Not Detected Not Detected [facility] Metapneumovirus RNA Not Detected Not Detected [facility] Rhinovirus/Enterov irus RNA Not Detected Not Detected [facility] Parainfluenza 1 RNA Not Detected Not Detected [facility] Parainfluenza 2 RNA Not Detected Not Detected [facility] Parainfluenza 3 RNA Not Detected Not Detected [facility] Parainfluenza 4 RNA Not Detected Not Detected [facility] B. pertussis DNA Not Detected Not Detected [facility] B. parapertussis DNA Not Detected Not Detected [facility] C. pneumoniae DNA Not Detected Not Detected [facility] M. pneumoniae DNA Not Detected Not Detected [facility] Comment: Interpretive Data The [employer] FilmArray Respiratory Panel (RP2.1) assay is a multiplexed real-time PCR based nucleic acid test capable of simultaneous qualitative detection and identification of multiple respiratory viral and bacterial nucleic acids, including SARS Coronavirus 2 (the causative agent of COVID-19). The following bacteria, viruses and virus subtypes can be identified using the FilmArray RP2.1 assay: Bordetella pertussis, Bordetella parapertussis, Chlamydia pneumoniae, Mycoplasma pneumoniae, Adenovirus, SARS Coronavirus 2, seasonal coronaviruses (Coronavirus HKU1, Coronavirus NL63, Coronavirus 229E, and Coronavirus OC43), Influenza A, Influenza A subtype H1, Influenza A subtype H3, Influenza A subtype 2009 H1, Influenza B, Metapneumovirus, Parainfluenza 1, Parainfluenza 2, Parainfluenza 3, Parainfluenza 4, RSV, Rhinovirus/Enterovirus. Due to the genetic similarity between human Rhinovirus and Enterovirus, the FilmArray RP2.1 assay cannot reliably differentiate them. Coronavirus OC43 may cross-react with some isolates of Coronavirus HKU1. ??A dual positive result may be due to cross-reactivity or may indicate a co-infection. The detection and identification of specific viral and bacterial nucleic acids from individuals exhibiting signs and symptoms of a respiratory infection aids in the diagnosis of respiratory infection if used in conjunction with other clinical and epidemiological information. ??The results of this test should not be used as the sole basis for diagnosis, treatment, or other management decisions. ??Negative results in the setting of a respiratory illness may be due to infection with pathogens that are not detected by this test. ??Positive results do not rule out infection/co-infection with other organisms. ??The agent(s) detected by the FilmArray RP2.1 may not be the definite cause of disease. ??Additional testing (lab, imaging, etc.) may be necessary when evaluating a patient with possible respiratory tract infection. The FilmArray RP2.1 assay has FDA clearance for testing of GRE[employer] FILLER swabs. ??The performance characteristics of this assay have been determined by [facility]. Current interpretive data was last revised on 2020. Nasopharyngeal 05/03/2024 5: 57 PM RESEARCH ASSOCIATE 05/03/2024 6:00 PM RESEARCH ASSOCIATE Narrative [facility] - 05/03/2024 6:49 PM RESEARCH ASSOCIATE Is the Patient experiencing symptoms consistent with COVID?->Yes Surveillance testing for transplant patient?->No Tierney PARKER LAB MICROBIOLOGY - GENERAL OR DERABLES Final Result Performing Organization Address City/[facility] Co de Phone Number [facility] [address] [address] Department [place] [address] * ECG 12 lead (05/03/2024 5:48 PM RESEARCH ASSOCIATE) 05/03/2024 5:48 PM RESEARCH ASSOCIATE Narrative [facility] - 05/04/2024 12:10 AM RESEARCH ASSOCIATE Vent Rate: 79 bpm RR Interval: 751 msec OK Interval: 134 msec QRS Duration: 82 msec QT Interval: 374 msec QTC Interval: 409 msec P-R-T [place]: 42 - 39 - 16 degrees IMPRESSION: SINUS RHYTHM NONSPECIFIC T-WAVE ABNORMALITY BORDERLINE ECG NO CHANGE FROM PREVIOUS TRACING NOTED Electronically Signed By: Miller Feldman MD Verona Raygoza MD ECG ORDERABLES Final R esult Performing Organization Address City/[facility]/ZIP Co de Phone Number [facility] from Last 3 Months Insurance [facility] CHOICE PLUS MEDICARE [facility] CHOICE PLUS MEDICARE [facility] CHOICE PLUS MEDICARE Care Teams Loan Processor Relationship Specialty Start Date End Date Isa Alves MD [address] [employer] [place] [address] PCP - General 08/29/16 Anay Sanches PT Physical Therapist Physical Therapy 12/10/21
--- OUTSIDE RECORDS SUMMARY | 2024-06-30 10:35 | XMS_ITS | Clinical Summary ---
Author Organization [facility] Address [address] [place] [address] Phone Care Team Providers Care Bindery Machine Tender Name Role Phone Isa Alves MD Primary Care Provider [phone] Allergies Active Allergy Reactions Criticality Noted Date Comments Adhesive Tape Other (see Comments) Low Reaction: rips her skin off., She has problems with dissovable stitches. Azithromycin Hives Reaction: HIVES Erythromycin Vomiting Methylprednisolone Itching Other reaction(s): Angioedema Reaction: itchy, ??lips swelling, ?? Penicillins Anaphylaxis,Hives,Ot h er (see Comments) High 08/14/2016 Reaction: Anaphylaxis, , Reaction: Other, , , Reaction: HIVES Medications celecoxib (CELEBREX) 200 MG Capsule 200 mg. 7 Active Cholecalciferol 25 mcg Capsule take 1 capsule daily 6 Active cyclobenzaprine (FLEXERIL) 10 MG Tablet take 1 tablet by ORAL route q12hrs prn pain. 6 Active loratadine (CLARITIN) 10 MG Tablet Take by mouth. Activ e Norethin Abraham-Eth Estrad-FE 1-20 MG-MCG Tablet Take by mouth. A ctive omeprazole (PRILOSEC) 20 MG CAPSULE DELAYED RELEASE 7 Active pregabalin (LYRICA) 100 MG Capsule 100 mg 2 times daily. 7 Active Vortioxetine HBr 5 MG Tablet Take by mouth. 7 Active Fluticasone Propionate (FLONASE NA) by Nasal route. A ctive hyoscyamine (LEVSIN) 0.125 MG Tablet Take 1 Tab by mouth every 4 hours as needed for Cramping. 120 Tab 8 Active azaTHIOprine (IMURAN) 50 MG Tablet Take 50 mg by mouth 3 times daily. Active traMADol (ULTRAM) 50 MG Tablet Take 50 mg by mouth every 8 hours as needed. Active diclofenac (VOLTAREN) 75 MG Tablet Delayed Response Take 75 mg by mouth 2 times daily. Active Homeopathic Products (RHEUMA-HEEL SL) by Sublingual route. Active otherIndications :PER PATIENT STATEMENT ON 02/17/23, SHE RECEIVES IV INFUSIONS OF RHEUMACAIDE EVERY 8 WEEKS IN HER RHEUMATOLOGY OFFICE, BUT DOES NOT KNOW THE DOSAGE AMOUNT. by Intravenous route every 60 days. Indications: PER PATIENT STATEMENT ON 02/17/23, SHE RECEIVES IV INFUSIONS OF RHEUMACAIDE EVERY 8 WEEKS IN HER RHEUMATOLOGY OFFICE, BUT DOES NOT KNOW THE DOSAGE AMOUNT. Active cetirizine (ZyrTEC) 10 MG Tablet Take 10 mg by mouth daily. Active esomeprazole (NexIUM) 40 MG CAPSULE DELAYED RELEASE Take 40 mg by mouth every morning (before breakfast). Active PARoxetine (PAXIL) 30 MG Tablet Take 30 mg by mouth daily. Active traMADol (ULTRAM) 50 MG TabletIndication s:Tarsal tunnel syndrome, right,Plantar fasciitis of right foot Take 1 Tablet by mouth every 6 hours as needed for Moderate or more severe pain. 15 Tablet 3 Active naloxone HCl (Narcan) 4 MG/0.1ML Liquid 1 [place] by Nasal route as needed for Opioid Reversal (opioid overdose). administer for symptoms of overdose (severe sleepiness, breathing problems, not responsive). Call 911. May use additional dose to repeat 1 spray intranasally in 2-3 minutes if needed. 2 Each 3 Active dicyclomine (BENTYL) 20 MG Tablet Take 1 Tablet by mouth every 6 hours as needed (ABD PAIN). 30 Tablet 4 Active Active Problems Problem Noted Date Diagnosed Date Plantar fasciitis of right foot 03/11/2023 Tarsal tunnel syndrome, right 03/11/2023 Family History Medical History Relation Name Comments Cancer Maternal Grandfather testicu lar and bone Breast Cancer Paternal Aunt 1 Cervical Cancer Paternal Aunt 2 Cancer Paternal Aunt 3 rectal Relation Name Status Comments Father Alive Maternal Grandfather Mother Alive Paternal Aunt 1 Paternal Aunt 2 Paternal Aunt 3 Social History Tobacco Use Types Packs/Day Years [...] Sign Reading Time Taken Comments Blood Pressure 129/88 03/01/2024 3:30 PM CDT Pulse 51 03/01/2024 3:30 PM CDT Temperature 36.4 ??C (97.5 ??F) 03/01/2024 3:30 PM CD T Respiratory Rate 18 03/01/2024 3:30 PM CDT Oxygen Saturation 96% 03/01/2024 3:30 PM CDT Inhaled Oxygen Concentration - - Weight 120.7 kg (266 lb) 03/01/2024 11:20 AM CDT Height 162.6 cm (5' 4 ) 03/01/2024 11:20 AM CDT Body Mass Index 45.66 03/01/2024 11:20 AM CDT Plan of Treatment Health Maintenance Due Date Last Done Comments Hepatitis C Virus (HCV) Screening 1982 Pap Smear 09/29/2003 Cervical Cancer Screening (CCS) 2012 HPV/Cotest 2012 Hepatitis B Immunization (2 of 3 - 19+ 3-dose series) 10/27/2019 09/29/2019 SARS-COV-2 Immunization (3 - Pfizer risk series) 05/22/2021 04/24/2021, 04/03/2021 Discussion re Starting/Frequency of Mammograms 2022 Influenza Immunization (#1) 2024 1010/2021, 03/26/2020, 03/25/2020, Additional history exists Respiratory Syncytial Virus (RSV) Immunization (Adult) (1 - 1-dose 75+ series) 2057 DTaP/Tdap/Td Immunization Discontinued 06/16/2012 TdaP Immunization Completed 06/16/2012 Pneumococcal Immunization Combined Aged Out 07/12/2019, 02/07/2019 No longer eligibl e based on patient's age to complete this topic Meningococcal Immunization (ACWY) Aged Out No longer eligible based on patient's age to complete this topic Rotavirus Immunization Aged Out No lo nger eligible based on patient's age to complete this topic Insurance MEDICARE Care Teams Bindery Machine Tender Relationship Specialty Start Date End Date Isa Alves MD [address] [place] [address] PCP - General Internal Medicine 06/08/17
--- OUTSIDE RECORDS SUMMARY | 2024-06-30 10:35 | XMS_ITS | Clinical Summary ---
Author Organization [facility] Address [address] [place] [address] Care Team Providers Care Vice President Of Instruction Name Role Phone Isa Alves MD Primary Care Provider [phone] Anay Sanches PT Unavailable Unavailable Allergies Active Allergy Reactions Criticality Noted Date [...] 06/16/2022 Assessment & Plan (06/16/2022 9:32 AM SALES CENTER MANAGER): Ms. Huntley had previous 360 fusion at [...] send a referral to Dr. Coleman in [facility]. 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 Continue Nexium 40 mg 30 minutes before [...] syndrome) Assessment & Plan (06/29/2018 2:43 PM SALES CENTER MANAGER): Many yrs of ibs with alternating C/D [...] tunnel syndrome Coughing SOB (shortness of breath) Encounters Date Type Department Care Team Description 05/03/2024 7:13 PM SALES CENTER MANAGER - 05/03/2024 11:45 PM SALES CENTER MANAGER Emergency [facility] Emergency Department [address] [place], [place] [id number] Verona Raygoza MD Rahhal, Ghady Al, MD Shortness of breath (Primary Dx); Cough, unspecified type Discharge Disposition: Discharge to home or self care from Last 3 Months Immunizations Name Administration Dates Next Due Influenza, Quadrivalent, Spl it, Preservative Free, Intramuscular 03/16/2017,03/01/2016 Influenza, Split 04/19/2010 Influenza, Trivalent, IM (MDV) 5,03/07/2015,03/16/2013,02/24 Tdap 06/16/2012 Surgical History Surgery Date Site/Laterality Comments SECTION 2007 section CHOLECYSTECTOMY gallbladder removal SECTION section TONSILLECTOMY Tonsillectomy OTHER SURGICAL HISTORY 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: tony OTHER SURGICAL HISTORY 02-ortho: granda OTHER SURGICAL HISTORY 03-ent: nella TUBAL LIGATION Bilateral tubal ligation OTHER SURGICAL HISTORY delivered a baby OTHER SURGICAL HISTORY ER severe stomach pain : [facility] CHOLECYSTECTOMY 2007 gallbladder removed SECTION 2011 section TONSILLECTOMY 2009 Tonsillectomy CARPAL TUNNEL RELEASE 2013 Right Carpal tunnel release CARPAL TUNNEL RELEASE Carpal tunnel release OTHER SURGICAL HISTORY 2013 ulnar nerve surgery OTHER SURGICAL HISTORY 2013 er visit swelling OTHER SURGICAL HISTORY 2013 back pain : Medical Management OTHER SURGICAL HISTORY 2014 Colitis: Medical Management TONSILLECTOMY HIP SURGERY 06/01/2020 - 05/31/2021 SPINAL FUSION 06/01/2016 - 05/31/2017 Anterior and Posterior L4-S1 Siddhartha SECTION Medical History Medical History Date Comments Hx 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 Hx Other Medical 02-ortho Hx Other Medical 03-ent Endometritis Endometriosis Gestational diabetes mellitus (GDM) Diabetes gestational Hx Other Medical Tarsal Tunnel b /l Depression Depression Tension headache Headache, tensi on Hx Other Medical 12/2011 ER severe stoma ch pain Hx Other Medical 2013 decompression ( rt ulnar nerve, carpal tunnel, and Hx Other Medical r side rib pain Hx Other Medical back pain; Comm ents: ct scan back, x-ray back Hx Other Medical Colitis Vertigo Rheumatoid arthritis (HCC) RA (rheumatoid arthritis) (HCC) Family History Medical History Relation Name Comments Other Father Alive and well; Breast cancer Father's Sister Cancer -tommie ast; Other Mother Alive and well; Polymyalgia rheumatica Mother Giant cell arteritis Relation Name Status Comments Father Alive Father's Sister Mother Alive Social History Tobacco Use Types Packs/Day Years Used Date Smoking Tobacco: Former Cigarettes 0.5 6 1 995 - 2000 Smokeless Tobacco: Never Tobacco Cessation:Counseling [...] on file Legal Sex Female 12:33 AM SALES CENTER MANAGER Gender Identity Not on file Sexual Orientation Not on file Obstetrics History Last Filed Vital Signs Vital Sign Reading Time Taken Comments Blood Pressure 130/82 05/03/2024 10:47 PM SALES CENTER MANAGER Pulse 76 05/03/2024 10:47 PM SALES CENTER MANAGER Temperature 36.9 ??C (98.4 ??F) 05/03/2024 10:[address] Respiratory Rate 14 05/03/2024 10:47 PM SALES CENTER MANAGER Oxygen Saturation 99% 05/03/2024 10:47 PM SALES CENTER MANAGER Inhaled Oxygen Concentration - - Weight 122.5 kg (270 lb) 05/03/2024 5:50 PM SALES CENTER MANAGER Height 162.6 cm (5' 4 ) 05/03/2024 5:50 PM SALES CENTER MANAGER Body Mass Index 46.35 05/03/2024 5:50 PM SALES CENTER MANAGER Plan of Treatment Health Maintenance Due Date Last Done Comments Breast Cancer Screening-Mammogram 1982 Cervical Cancer Screening 1982 Hepatitis C Screening 1982 Varicella Vaccines (1 of 2 - 13+ 2-dose series) 09/29/1995 Zoster Vaccine (1 of 2) 2001 04/30/2023, 02/28 Regular Well Visit/Exam 18-64 03/16/2018 03/16/2017 DTaP/Tdap/Td Vaccine (2 - Td or Tdap) 06/16/2022 06/16/2012 Depression Screening 06/16/2023 06/16/2022, 06/16/2022, 04/01/2017, Additional history exists Influenza Vaccine (#1) 2024 0, 03/15/2019, 04/05/2018, Additional history exists Pneumococcal vaccine <65 (4 of 4 - PPSV23 or PCV20) 09/29/2047 07/12/2019, 07/11/2019, 02/07/2019 HPV Vaccines Aged Out No longer eligi ble based on patient's age to complete this topic Procedures Procedure Name Priority Date/Time Associated Diagnosis Comments CT CHEST PE W CONTRAST ED 9:29 PM SALES CENTER MANAGER URINALYSIS AND REFLEX TO MICROSCOPIC AND CULTURE STAT 05/03/2024 9:20 PM SALES CENTER MANAGER TROPONIN T HIGH-SENSITIVITY 2-HOUR Timed 05/03/2024 8:22 PM SALES CENTER MANAGER XR CHEST 1 VIEW ED 05/03/2024 6:07 PM SALES CENTER MANAGER HCG, BLOOD, QUANTITATIVE STAT 05/03/2024 6:01 PM SALES CENTER MANAGER EGFR STAT 05/03/2024 6:01 PM SALES CENTER MANAGER DIFFERENTIAL AUTO STAT 05/03/2024 6:0 1 PM SALES CENTER MANAGER TROPONIN T HIGH-SENSITIVITY SERIES (BASELINE, 2HR, 4HR, 6HR) STAT 05/03/2024 6:01 PM SALES CENTER MANAGER COMPREHENSIVE METABOLIC PANEL STAT 05/03/2024 6:01 PM SALES CENTER MANAGER CBC WITH AUTO DIFFERENTIAL STAT 05/03/2024 6:01 PM SALES CENTER MANAGER PRO B-TYPE NATRIURETIC PEPTIDE STAT 05/03/2024 6:01 PM SALES CENTER MANAGER RESPIRATORY PATHOGEN PANEL STAT 05/03/2024 5:57 PM SALES CENTER MANAGER ECG 12-LEAD STAT 05/03/2024 5:48 PM SALES CENTER MANAGER from Last 3 Months Results * CT Chest PE (CTA) W Contrast (05/03/2024 9:29 PM SALES CENTER MANAGER) Anatomical Region Laterality Modality Body N/A Computed Tomogra phy 05/03/2024 9:25 PM SALES CENTER MANAGER Impressions 05/04/2024 7:48 AM SALES CENTER MANAGER 1. ?? No pulmonary artery emboli. 2. ?? Ectatic ascending thoracic aorta measuring 3.5 cm in AP dimension. No aortic aneurysm or dissection. 3. ?? No pulmonary infiltrates. Stat report by [facility] Electronically signed by: Robin Youngblood M.D. Narrative 05/04/2024 7:48 AM SALES CENTER MANAGER EXAMINATION: CT CHEST PE (CTA) W CONTRAST [...] 3. No pulmonary infiltrates. Stat report by [facility] Electronically signed by: Robin Youngblood M.D. Verona Raygoza MD IM CT PROCEDURES Final Result * Urinalysis reflex to microscopic and culture Urine (05/03/2024 9:20 PM SALES CENTER MANAGER) Color, ur Yellow Yellow Clarity, ur Clear [...] tendency for uric acid stone formation. Source: AM Technology Current Interpretive Data was last revised on [...] met. [facility]ER [facility] Urine 05/03/2024 9:20 PM SALES CENTER MANAGER 05/03/2024 9:35 PM SALES CENTER MANAGER Tierney PARKER LAB MICROBIOLOGY - GENERAL OR DERABLES Final Result Performing Organization Address [facility] Co de Phone Number [facility] SANCHES [address] [facility] [place] [address] * Troponin T high-sensitivity 2-hour (05/03/2024 8:22 PM SALES CENTER MANAGER) Trop T hs <6 <=14 ng/L Comment: Interpretive Data For further hscTnT resources including the diagnostic algorithm and an aid in interpretation, copy and paste this link: https://nrl.testcatalog.org/show/hsTrop Current Interpretive Data last revised 2020. Trop T hs delta 0 ng/L [facility] Trop T hs interp Insignificant [facility] Blood 05/03/2024 8:22 PM SALES CENTER MANAGER 05/03/2024 8:25 PM SALES CENTER MANAGER Tierney PARKER LAB BLOOD ORDERABLES Final Re sult Performing Organization Address [facility] Co de Phone Number ROVERTO SANCHES [address] [place] [address] * XR Chest 1 Vw Portable (05/03/2024 6:07 PM SALES CENTER MANAGER) Anatomical Region Laterality Modality Body, Chest N/A Computed Radiogr aphy 05/03/2024 6:33 PM SALES CENTER MANAGER Impressions 05/03/2024 6:33 PM SALES CENTER MANAGER No active disease. Electronically signed by: Marian Ochoa M.D. Narrative 05/03/2024 6:33 PM SALES CENTER MANAGER EXAMINATION: XR CHEST 1 VIEW HISTORY: The [...] (baseline, 2hr, 4hr, 6hr) (05/03/2024 6:01 PM SALES CENTER MANAGER) Trop T hs <6 <=14 ng/L Comment: Interpretive Data For further hscTnT resources including the diagnostic algorithm and an aid in interpretation, copy and paste this link: https://nrl.testcatalog.org/show/hsTrop Current Interpretive Data last revised 2020. Blood 05/03/2024 6:01 PM SALES CENTER MANAGER 05/03/2024 6:01 PM SALES CENTER MANAGER us Tierney PARKER LAB BLOOD ORDERABLES Final Re sult [facility] [address] [place] [address] * eGFR (05/03/2024 6:01 PM SALES CENTER MANAGER) eGFR 88 >=60 mL/min/1. 73 m2 Comment: [...] last reviewed 2021. Blood 05/03/2024 6:01 PM SALES CENTER MANAGER 05/03/2024 6:01 PM SALES CENTER MANAGER us Tierney PARKER LAB BLOOD ORDERABLES Final Re sult [facility] [id number] [place] [address] * Differential, auto (05/03/2024 6:01 PM SALES CENTER MANAGER) Neutrophil abs 5.9 1.5 - 6.5 K/cumm Imm gran abs 0.0 0.0 - 0.1 K/cumm [facility] Lymphocyte abs 2.4 0.8 - 3.3 K/[facility]umm [facility] Monocyte abs 0.6 0.2 - 0.8 K/cumm [facility] Eosinophil abs 0.3 0.0 - 0.5 K/cumm [facility] Basophil abs 0.1 0.0 - 0.1 K/cumm [facility] Neutrophil pct 64.0 % [facility] Comment: Interpretive Data Percent cell count reference ranges are not reported, since discordance with absolute values may lead to misinterpretation of CBC data. Current Interpretive Data was last revised on 2017. Imm gran pct 0.3 % [facility] Comment: Interpretive Data Percent cell count reference ranges are not reported, since discordance with absolute values may lead to misinterpretation of CBC data. Current Interpretive Data was last revised on 2017. Lymphocyte pct 25.5 % [facility] Comment: Interpretive Data Percent cell count reference ranges are not reported, since discordance with absolute values may lead to misinterpretation of CBC data. Current Interpretive Data was last revised on 2017. Monocyte pct 6.5 % [facility] Comment: Interpretive Data Percent cell count reference ranges are not reported, since discordance with absolute values may lead to misinterpretation of CBC data. Current Interpretive Data was last revised on 2017. Eosinophil pct 2.7 % [facility] Comment: Interpretive Data Percent cell count reference ranges are not reported, since discordance with absolute values may lead to misinterpretation of CBC data. Current Interpretive Data was last revised on 2017. Basophil pct 1.0 % [facility] Comment: Interpretive Data Percent cell count reference ranges are not reported, since discordance with absolute values may lead to misinterpretation of CBC data. Current Interpretive Data was last revised on 2017. Blood 05/03/2024 6:01 PM SALES CENTER MANAGER 05/03/2024 6:01 PM SALES CENTER MANAGER us Tierney PARKER LAB BLOOD ORDERABLES Final Re sult [facility] [address] Department [place] [address] * Pro B-type natriuretic peptide (05/03/2024 6:01 PM SALES CENTER MANAGER) NT-proBNP 42 <=300 pg/mL Comment: Interpretive Comments: [...] Heart J. 2006:27:330-337. 2. Theresa RW, Rufina ORTIZ. J. AM Gabriella Cardiol: Cardiovasc Imag. 2009;2: 216- 225. Interpretive Data Last Revised Date: 2018. Blood 05/03/2024 6:01 PM SALES CENTER MANAGER 05/03/2024 6:01 PM SALES CENTER MANAGER us Tierney PARKER LAB BLOOD ORDERABLES Final Re sult [facility] [address] Department [place] [address] * (ABNORMAL) CBC with auto differential (05/03/2024 6:01 PM SALES CENTER MANAGER) Pathologist [facility] WBC 9.3 3.8 - 9.9 K/cumm Hgb 11.7(L) 11.9 - 15.5 g/dL [facility] Hct 36.4 35.6 - 45.5 % [facility] Plt 347 150 - 400 K/cumm [facility] Comment:No clot detected in sample. MPV 9.6 9.1 - 12.3 fL [facility] RBC 4.22 3.90 - 5.20 M/cumm [facility] MCV 86.3 81.3 - 96.4 fL [facility] MCH 27.7 27.1 - 33.3 pg [facility] MCHC 32.1(L) 32.3 - 35.7 g/dL [facility] CH RDW CV 13.9 11.1 - 14.9 % [facility] RDW SD 44.0 35.7 - 48.1 fL [facility] NRBC abs 0.00 0.00 - 0.01 K/cumm [facility] Blood 05/03/2024 6:01 PM SALES CENTER MANAGER 05/03/2024 6:01 PM SALES CENTER MANAGER Tierney PARKER LAB BLOOD ORDERABLES Final Re sult Performing Organization Address [facility] Co de Phone Number [facility] [address] [place] [address] * hCG, blood, quantitative (05/03/2024 6:01 PM SALES CENTER MANAGER) hCG, quant <0.1 0.0 - 5.0 IUnits/L Comment: Interpretive Data Male: < 5 IU/L Non- premenopausal Female: <5 IU/L The [employer] hCG Beta Quant assay procedure was used. Results from different manufacturers or methods may not be comparable. ??Serial testing should be performed using the same method. Interpretive Data was last revised on 2023 Blood 05/03/2024 6:01 PM SALES CENTER MANAGER 05/03/2024 7:54 PM SALES CENTER MANAGER Verona Raygoza MD LAB BLOOD ORDERABLES Fi nal Result Performing Organization Address [facility]/ZIP Co de Phone Number [facility] [address] [employer] [place] [address] * (ABNORMAL) Comprehensive metabolic panel (05/03/2024 6:01 PM SALES CENTER MANAGER) Sodium 136 135 - 145 mmol/L Potassium, pl 4.3 3.3 - 4.9 mmol/L [facility] Chloride 102 97 - 110 mmol/L [facility] CO2 19(L) 22 - 32 mmol/L [facility] Anion gap 15 2 - 15 mmol/L [facility] BUN 9 6 - 25 mg/dL [facility] Creatinine 0.85 0.60 - 1.10 mg/dL [facility] Glucose 94 70 - 199 mg/dL [facility] Comment: Interpretive Data Fasting glucose >/= 126 [...] Units/L [facility] Blood 05/03/2024 6:01 PM SALES CENTER MANAGER 05/03/2024 6:01 PM SALES CENTER MANAGER Tierney PARKER LAB BLOOD ORDERABLES Final Re sult [facility] [address] [address] Department [place] [address] * Respiratory pathogen panel Nasopharyngeal (05/03/2024 5:57 PM SALES CENTER MANAGER) Influenza A RNA Not Detected Not Detected CH Influenza B RNA Not Detected Not Detected [facility] RSV RNA Not Detected Not Detected [facility] COVID-19 RNA Not Detected Not Detected [facility] Coronavirus 229E RNA Not Detected Not Detected [facility] Coronavirus HKU1 RNA Not Detected Not Detected [facility] Coronavirus NL63 RNA Not Detected Not Detected [facility] Coronavirus OC43 RNA Not Detected Not Detected [facility] Adenovirus DNA Not Detected Not Detected [facility] Metapneumovirus RNA Not Detected Not Detected [facility] Rhinovirus/Enterov irus RNA Not Detected Not Detected [facility] Parainfluenza 1 RNA Not Detected Not Detected [facility] Parainfluenza 2 RNA Not Detected Not Detected [facility] Parainfluenza 3 RNA Not Detected Not Detected [facility] Parainfluenza 4 RNA Not Detected Not Detected [facility] B. pertussis DNA Not Detected Not Detected [facility] B. parapertussis DNA Not Detected Not Detected [facility] C. pneumoniae DNA Not Detected Not Detected [facility] M. pneumoniae DNA Not Detected Not Detected [facility] Comment: Interpretive Data The [employer] Film[employer] Respiratory Panel (RP2.1) assay is a [...] assay has FDA clearance for testing of PLANT FLOOR AUTOMATION MANAGER swabs. ??The performance characteristics of this assay have been determined by [facility]. Current interpretive data was last revised on 2020. Nasopharyngeal 05/03/2024 5: 57 PM SALES CENTER MANAGER 05/03/2024 6:00 PM SALES CENTER MANAGER Narrative [facility] - 05/03/2024 6:49 PM SALES CENTER MANAGER Is the Patient experiencing symptoms consistent with COVID?->Yes Surveillance testing for transplant patient?->No Tierney PARKER LAB MICROBIOLOGY - GENERAL OR DERABLES Final Result Performing Organization Address [facility] Co de Phone Number [facility] [address] [place] [address] * ECG 12 lead (05/03/2024 5:48 PM SALES CENTER MANAGER) 05/03/2024 5:48 PM SALES CENTER MANAGER Narrative [facility] - 05/04/2024 12:10 AM SALES CENTER MANAGER Vent Rate: 79 bpm RR Interval: 751 msec FL Interval: 134 msec QRS Duration: 82 msec QT Interval: 374 msec QTC Interval: 409 msec P-R-T [place]: 42 - 39 - 16 degrees IMPRESSION: SINUS RHYTHM NONSPECIFIC T-WAVE ABNORMALITY BORDERLINE ECG NO CHANGE FROM PREVIOUS TRACING NOTED Electronically Signed By: Miller Feldman MD Verona Raygoza MD ECG ORDERABLES Final R esult Performing Organization Address [facility]/ZIP Co de Phone Number [facility] [employer] [facility] from Last 3 Months Insurance [facility] CHOICE PLUS MEDICARE [facility] CHOICE PLUS MEDICARE [facility] CHOICE PLUS MEDICARE Care Teams Vice President Of Instruction Relationship Specialty Start Date End Date Isa Alves MD [address] [place] [address] PCP - General 08/29/16 Anay Sanches PT Physical Therapist Physical Therapy 12/10/21
--- OUTSIDE RECORDS SUMMARY | 2024-06-30 10:35 | XMS_ITS | Continuity of Care Document ---
Author Organization [facility] Address [address] [place] [address] Phone Care Team Providers Care Digital Account Manager Name Role Phone Devon Walsh MD Unavailable Unavailable Allergies, Adverse Reactions, Alerts Substance Reaction Status Criticality Penicillins Active No Information Medications Medication Instructions Dosage Effective Dates (start - stop) Status Comments Venlafaxine ER 75 mg 24 hr Tab - Active Gabapentin 300 mg Cap - Active Procedures Procedure Date Office/outpatient Visit, [facility] Advance Directives Directive Yes / No Effective Date File Name Resuscitation Not Answered N/A N/A Life Support Not Answered N/A N/A Intubation Not Answered N/A N/A Antibiotics Not Answered N/A N/A IV Fluid Support Not Answered N/A N/A Tube Feed Not Answered N/A N/A Other Directive N/A N/A WARNING:The information contained in this section is historical and is provided for information only and does not constitute a legal document or any assurance that the information is still accurate. Please verify the information with the jasso of the legal document before using it for clinical purposes. Encounters Encounter Description Practice Location Reason(s) For Visit Diagnoses Date Provider Providers Copied on Encounter Office/outpa tient Visit, [facility], [address], [place], [place], [id number], [place] tel:[phone] [place] Professional a comprehensive exam (chief complaint) VISUAL DISTURBANCE NOSMGRN W AURA WO NTR MGRN 2 Jillian Osorio. [address], [place], [place], [id number], [place]. tel:[phone] [facility], [address], [place], [place], [id number], [place] tel:[phone] [place] No Information 2 Jillian Osorio. [address], [place], [place], [id number], [place]. tel:[phone] Family History Family Member Type Diagnosis Age At Onset Problem (finding) Grandmother Problem (finding) Diabetes mellitus Payers Payer name Insurance type Covered democrat ID Authoriza tion(s) No Information Social History Type Description Quantity Date Captured Comments Alcohol Use Details No Caffeine Use Details 34oz/day per day 12 Tobacco Use Status No Information Smoking Status No Information Sex Female Chief Complaint And Reason For Visit From encounter dated '01/28/2012 14:15'. a comprehensive exam (chief complaint) Reason For Referral Reason For Referral No Information History Of Present Illness Encounter Date Complaint History Of Prese nt Illness No Information Functional Status Date Functional Assessmen t No Information Instructions Date Instruction Additional Infor mation - PRN Related to MGRN W AURA WO NTR MGRN MGRN W AURA WO [facility] MGRN, OU - Ocular migraine- vision affected - will continue to monitor - Discussed dx with pt and . Pt to monitor what brings on flashes. Explained to pt that typical or classic migraines would have headaches involved also, pt does not complain of headaches after flashes.Letter dictated to Dr. Tawana Alves. Related to MGRN W AURA WO [facility] MGRN Assessments Type Assessment Date No Information Patient Care Teams Name Effective Dates (start - stop) Status Members No Information
--- OUTSIDE RECORDS SUMMARY | 2024-06-30 10:36 | XMS_ITS | Referral Summary ---
Author Organization 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,non-owned Affiliates and Associated Physician Practices is amultiple site organization consisting of ambulatory clinics and hospital sitesin [place], [place], [place] and [place]. This disclosure is being madepursuant to the Care Everywhere program and may not contain all information available regarding this patient. Last updated 18.[facility] Allergies Active Allergy Reactions Criticality Noted Date Comments Adhesive Sensitivity Skin Reactions 02/05/2024 Azithromycin Urticaria Medium 06/29/2020 Reaction: HIVES Reaction: HIVES Celecoxib Itching 02/05/2024 Erythromycin Vomiting 06/29/2020 Hydroxychloroquine Myalgias 02/05/2024 Methylprednisolone Angioedema,Itching High Other reaction(s): Angioedema Reaction: itchy, ??lips swelling, ?? Reaction: itchy, ??lips swelling, ?? Penicillin G Anaphylaxis High 02/05/2024 Penicillins Anaphylaxis High 08/14/2016 Other reaction(s): Hives, Other (See comments) Reaction: Anaphylaxis, ??, Reaction: Other, ??, , Reaction: HIVES Reaction: Anaphylaxis, ??, Reaction: Other, ??, , Reaction: HIVES Pneumococcal Vac Polyvalent Itching 02/05/20 24 Prednisolone Itching,Other Low 09/02/2021 Tongue swelling Prednisone Rash,Itching Medium 11/08/2021 Medications * Be aware that medications may not be up to date on this document. Alwaysverify current medications with the patient. Medication Sig Dispensed Refills Start Date End Date Status fluticasone propionate (FLONASE) 50 MCG/ACT nasal spray [place] 1 (one) spray into each nostril once daily Active norgestim-eth estrad triphasic tablet Take 1 (one) tablet by mouth once daily 05/14/2020 Active cetirizine (ZYRTEC ALLERGY) 10 MG tablet Take 1 (one) tablet by mouth once daily Active Orencia ClickJect 125 MG/ML auto-injector pen Inject 1 mL subcutaneously every 7 days 01/21/2024 Active Breyna 160-4.5 MCG/ACT inhaler Inhale 2 (two) puffs by mouth 2 times daily 06/05/2023 Active Symbicort 80-4.5 MCG/ACT inhaler Inhale 2 (two) puffs by mouth 2 times daily 01/18/2024 Active diclofenac sodium EC (Voltaren) 75 MG tablet Take 1 (one) tablet by mouth as directed 06/19/2022 Active vitamin D, ergocalciferol, (Drisdol) 1.25 MG (94780 UT) capsule Take 1 (one) capsule by mouth every 7 days 11/30/2023 Active Spacer/Aero-Holdi ng Chambers (Compact Space Chamber) Use as directed 01/20/2024 Active traMADol (Ultram) 50 MG tablet Take 1 (one) tablet by mouth 3 times daily as needed for Pain 01/14/2024 Active PARoxetine (Paxil) 30 MG tablet Take 1 (one) tablet by mouth once daily 01/14/2024 Active pregabalin (Lyrica) 100 MG capsule Take 1 (one) capsule by mouth 2 times daily 01/14/2024 Active golimumab (Simponi Aria) infusion 2 mg/kg by Intravenous route as directed Active esomeprazole (NexIUM) 40 MG capsule Take 1 (one) capsule by mouth once daily Active Other 1 Each by Intravenous route every 60 days Active meloxicam (Mobic) 15 MG tablet Take 1 (one) tablet by mouth once daily 30 tablet 3 02/10/2024 Active Active Problems Problem Noted Date Diagnosed Date SOB (shortness of breath) 02/05/2024 Plantar fasciitis of right foot 03/11/2023 Tarsal tunnel syndrome, right 03/11/2023 Low back pain, non-specific 06/16/2022 Overview (02/05/2024): Last Assessment & Plan: Ms. Huntley had previous 360 fusion at [...] send a referral to Dr. Coleman in [facility]. Patient to follow up on an as needed basis. Vasomotor rhinitis 09/02/2021 Overview (02/05/2024): Last Assessment & Plan: Discussed Vasomotor rhinitis versus Reflux therapy Wearing watch guard gate Continue Nexium 40 mg 30 minutes before first meal of the day Start Pepcid at bedtime 40 mg Call if no improvement in 8-12 weeks for switch from Flonase to Astelin Thyroid nodule 09/02/2021 Overview (02/05/2024): Last Assessment & Plan: Right thyroid lobe nodule 1.6 cm Detected [...] agrees with above plan. Laryngeal spasm 09/02/2021 Overview (02/05/2024): Last Assessment & Plan: Discussed Vasomotor rhinitis versus Reflux therapy Wearing watch guard gate Continue Nexium 40 mg 30 minutes before first meal of the day Start Pepcid at bedtime 40 mg Call if no improvement in 8-12 weeks for switch from Flonase to Astelin LPR discussed and Handout provided Neck pain 12/28/2019 Overview (06/29/2020): Last Assessment & Plan: Assessment: Neck pain Plan: I would recommend [...] cervical spine. Degenerative disc disease, lumbar 12/28/2019 Overview (06/29/2020): Last Assessment & Plan: Assessment: Mild degenerative disc disease L3-4 L4-5 and L5-S1 anterior posterior lumbar fusion well-healed Plan: I recommend that she attend some aquatic physical therapy. She would like to hold off at this point in time. If she would like to move forward with that she is simply to give the office a call. Degenerative disc disease, lumbar 12/28/2019 Overview (07/30/2020): Last Assessment & Plan: Assessment: Mild degenerative disc disease L3-4 L4-5 and L5-S1 anterior posterior lumbar fusion well-healed Plan: I recommend that she attend some aquatic physical therapy. She would like to hold off at this point in time. If she would like to move forward with that she is simply to give the office a call. Neck pain 12/28/2019 Overview (07/30/2020): Last Assessment & Plan: Assessment: Neck pain Plan: I would recommend [...] can order an MRI of cervical spine. Hypertriglyceridemia 04/01/2017 Fibromyalgia 03/16/2017 Polycystic ovaries 01/09/2016 Overview (06/29/2020): PCOS Polycystic ovaries 01/09/2016 Overview (07/30/2020): PCOS Depression 06/22/2014 Overview (06/29/2020): Depression Depression 06/22/2014 Overview (07/30/2020): Depression Atopic rhinitis 10/15/2013 Overview (06/29/2020): Allergic rhinitis Headache 10/15/2013 Overview (06/29/2020): Mixed headache Endometriosis 10/15/2013 Overview (06/29/2020): Endometriosis Carpal tunnel syndrome 10/15/2013 Overview (06/29/2020): Carpal tunnel syndrome Atopic rhinitis 10/15/2013 Overview (07/30/2020): Allergic rhinitis Carpal tunnel syndrome 10/15/2013 Overview (07/30/2020): Carpal tunnel syndrome Endometriosis 10/15/2013 Overview (07/30/2020): Endometriosis Headache 10/15/2013 Overview (07/30/2020): Mixed headache Costochondritis 06/15/2013 Overview (06/29/2020): Costochondritis Costochondritis 06/15/2013 Overview (07/30/2020): Costochondritis Irritable bowel syndrome 02/25/2013 Overview (06/29/2020): IBS (irritable bowel syndrome) Last Assessment & Plan: Many yrs of ibs with alternating C/D and chroinic RUQ pain. 2012 CT for RUQ pain. Perry had evan. Colonoscopy 06/[address] last month. Opined that the RUQ pain is chronic and part of her ibs and fibromyalgia and do not think further testing is warranted but trial of hi fiber diet. Return prn Irritable bowel syndrome 02/25/2013 Overview (07/30/2020): IBS (irritable bowel syndrome) Last Assessment & Plan: Many yrs of ibs with alternating C/D and chroinic RUQ pain. 2012 CT for RUQ pain. Perry had evan. Colonoscopy 06/[address] last month. Opined that the RUQ pain is chronic and part of her ibs and fibromyalgia and do not think further testing is warranted but trial of hi fiber diet. Return prn Tarsal tunnel syndrome 05/28/2011 Overview (06/29/2020): Tarsal tunnel syndrome Tarsal tunnel syndrome 05/28/2011 Overview (07/30/2020): Tarsal tunnel syndrome Resolved Problems Problem Noted Date Diagnosed Date Resolved Date Coughing 02/05/2024 03/04/2024 Immunizations Name Administration Dates Next Due INFLUENZA VACCINE, TRIV. (AF LURIA, FLUZONE TRIVALENT; 6MO+) (IIV3) 03/29/2015,03/07/2015,03/16/2013,2010 COVID - 19, HISTORIC VACCINE 04/23/2021,04/04/20 21 HepB Unspecified formulation 09/29/2019 INFLUENZA VACCINE 03/25/2020,03/15/2019,03/15/20 17 INFLUENZA VACCINE, CELL CULT URE, QUADR. (FLUCELVAX QUADRIVALENT; 6MO+), 0.5 ML (CCIIV4) 04/05/2018 INFLUENZA VACCINE, QUADR. (A FLURIA, FLUZONE QUADRIVALENT; 6MO+) (IIV4) 04/19/2010 INFLUENZA VACCINE, QUADR. (F LUZONE; FLULAVAL; FLUARIX; AFLURIA QUADRIVALENT; 6MO+), 0.5 ML (IIV4) 03/16/2017,03/01/2016 PNEUMOCOCCAL PPSV23 07/12/2019,07/11/2019 Pneumococcal Pcv13 Conj 02/06/2019 TDAP (7yrs+) 06/16/2012,06/15/2012 ZOSTER HISTORIC VACCINE 04/30/2023,02/28/2023 Social History Tobacco Use Types Packs/Day Years Used Date Smoking Tobacco: Former Cigarettes Smokeless Tobacco: Never Tobacco Cessation:Counseling Given: Not Answered Alcohol Use Standard Drinks/Week Comments Not Currently 0 (1 standard drink = 0.6 oz pur e alcohol) Sex and Gender Information Value Date Recorded Sex Assigned at Not on file Gender Identity Not on file Sexual Orientation Not on file Last Filed Vital Signs Vital Sign Reading Time Taken Comments Blood Pressure 119/69 01/31/2021 5:30 PM CDT Pulse 74 01/31/2021 5:30 PM CDT Temperature 36.2 ??C (97.1 ??F) 01/31/2021 4:25 PM CD T Respiratory Rate 13 01/31/2021 5:30 PM CDT Oxygen Saturation 99% 01/31/2021 5:30 PM CDT Inhaled Oxygen Concentration - - Weight 68.9 kg (152 lb) 01/31/2021 12:00 PM CDT Height 162.6 cm (5' 4 ) 01/31/2021 12:00 PM CDT Body Mass Index 26.09 01/31/2021 12:00 PM CDT Functional Status Functional Status Response Date of Assess ment Is person deaf or have serious hearing difficult y? No 01/31/2021 Is person blind or have serious difficulty seein g? No 01/31/2021 Does person have serious dif ficulty walking/climbing stairs? No 01/31/2021 Does person have difficulty dressing/bathing? No 01/31/2021 Does person have difficulty doing errands alone? No 01/31/2021 Cognitive Status Response Date of Assessm ent Does person have difficulty concentrating/remembering/making decisions? 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
--- OUTSIDE RECORDS SUMMARY | 2024-06-30 10:36 | XMS_ITS | Patient Health Summary ---
Author Organization [facility] Address [address] [place] [address] Care Team Providers Care Registration Scheduling Specialist Name Role Phone Unavailable Primary Care Provider Unavailabl e Note from [facility],non-owned Affiliates and Associated Physician Practices is amultiple site organization consisting of ambulatory clinics and hospital sitesin [place], [place], [place] and [place]. This disclosure is being madepursuant to the Care Everywhere program and may not contain all information available regarding this patient. Last updated 18.[facility] Allergies * Adhesive Sensitivity(Skin Reactions) * Azithromycin(Urticaria) -Medium Criticality * Celecoxib(Itching) * Erythromycin(Vomiting) * Hydroxychloroquine(Myalgias) * Methylprednisolone(Angioedema,Itching) -High Criticality * Penicillin G(Anaphylaxis) -High Criticality * Penicillins(Anaphylaxis) -High Criticality * Pneumococcal Vac Polyvalent(Itching) * Prednisolone(Itching,Other) -Low Criticality * Prednisone(Rash,Itching) -Medium Criticality Medications * Be aware that medications may not be up to date on this document. Alwaysverify current medications with the patient. * fluticasone propionate (FLONASE) 50 MCG/ACT nasal spray Drury 1 (one) spray into each nostril once daily * norgestim-eth estrad triphasic tablet(Started 05/14/2020) Take 1 (one) tablet by mouth once daily * cetirizine (ZYRTEC ALLERGY) 10 MG tablet Take 1 (one) tablet by mouth once daily * Orencia ClickJect 125 MG/ML auto-injector pen(Started 01/21/2024) Inject 1 mL subcutaneously every 7 days * Breyna 160-4.5 MCG/ACT inhaler(Started 06/05/2023) Inhale 2 (two) puffs by mouth 2 times daily * Symbicort 80-4.5 MCG/ACT inhaler(Started 01/18/2024) Inhale 2 (two) puffs by mouth 2 times daily * diclofenac sodium EC (Voltaren) 75 MG tablet(Started 06/19/2022) Take 1 (one) tablet by mouth as directed * vitamin D, ergocalciferol, (Drisdol) 1.25 MG (34705 UT) capsule(Started 11/30/2023) Take 1 (one) capsule by mouth every 7 days * Spacer/Aero-Holding Chambers (Compact Space Chamber)(Started 01/20/2024) Use as directed * traMADol (Ultram) 50 MG tablet(Started 01/14/2024) Take 1 (one) tablet by mouth 3 times daily as needed for Pain * PARoxetine (Paxil) 30 MG tablet(Started 01/14/2024) Take 1 (one) tablet by mouth once daily * pregabalin (Lyrica) 100 MG capsule(Started 01/14/2024) Take 1 (one) capsule by mouth 2 times daily * golimumab (Simponi Aria) infusion 2 mg/kg by Intravenous route as directed * esomeprazole (NexIUM) 40 MG capsule Take 1 (one) capsule by mouth once daily * Other 1 Each by Intravenous route every 60 days * meloxicam (Mobic) 15 MG tablet(Started 02/10/2024) Take 1 (one) tablet by mouth once daily 3 refills by 02/09/2025 Active Problems Problem Noted Date Diagnosed Date SOB (shortness of breath) 02/05/2024 Plantar fasciitis of right foot 03/11/2023 Tarsal tunnel syndrome, right 03/11/2023 Low back pain, non-specific 06/16/2022 Vasomotor rhinitis 09/02/2021 Thyroid nodule 09/02/2021 Laryngeal spasm 09/02/2021 Neck pain 12/28/2019 Degenerative disc disease, lumbar 12/28/2019 Degenerative disc disease, lumbar 12/28/2019 Neck pain 12/28/2019 Hypertriglyceridemia 04/01/2017 Fibromyalgia 03/16/2017 Polycystic ovaries 01/09/2016 Polycystic ovaries 01/09/2016 Depression 06/22/2014 Depression 06/22/2014 Atopic rhinitis 10/15/2013 Headache 10/15/2013 Endometriosis 10/15/2013 Carpal tunnel syndrome 10/15/2013 Atopic rhinitis 10/15/2013 Carpal tunnel syndrome 10/15/2013 Endometriosis 10/15/2013 Headache 10/15/2013 Costochondritis 06/15/2013 Costochondritis 06/15/2013 Irritable bowel syndrome 02/25/2013 Irritable bowel syndrome 02/25/2013 Tarsal tunnel syndrome 05/28/2011 Tarsal tunnel syndrome 05/28/2011 Resolved Problems Problem Noted Date Diagnosed Date Resolved Date Coughing 02/05/2024 03/04/2024 Immunizations * INFLUENZA VACCINE, TRIV. (AFLURIA, FLUZONE TRIVALENT; 6MO+) (IIV3)(Given 03/29/2015, 03/07/2015, 03/16/2013, 02/24/2011) * COVID - 19, HISTORIC VACCINE(Given 04/23/2021, 04/04/2021) * HepB Unspecified formulation(Given 09/29/2019) * INFLUENZA VACCINE(Given 03/25/2020, 03/15/2019, 03/15/2017) * INFLUENZA VACCINE, CELL CULTURE, QUADR. (FLUCELVAX QUADRIVALENT; 6MO+), 0.5 ML (CCIIV4)(Given 04/05/2018) * INFLUENZA VACCINE, QUADR. (AFLURIA, FLUZONE QUADRIVALENT; 6MO+) (IIV4)(Given 04/19/2010) * INFLUENZA VACCINE, QUADR. (FLUZONE; FLULAVAL; FLUARIX; AFLURIA QUADRIVALENT; 6MO+), 0.5 ML (IIV4)(Given 03/16/2017, 03/01/2016) * PNEUMOCOCCAL PPSV23(Given 07/12/2019, 07/11/2019) * Pneumococcal Pcv13 Conj(Given 02/06/2019) * TDAP (7yrs+)(Given 06/16/2012, 06/15/2012) * ZOSTER HISTORIC VACCINE(Given 04/30/2023, 02/28/2023) Social History Tobacco Use Types Packs/Day Years [...] Mass Index 26.09 01/31/2021 12:00 PM CDT Medical Devices Implanted Type Area Communications Executive Device Identifier Shelf Expiration Date Model / Serial / Lot Kit Inst Hip Instrumentation Sys Implanted:Qty: 1 on 01/31/2021 by Kenny Rangel MD at [facility] [employer] [id number] / / Procedures * XR HIP LEFT 2VW OR MORE(Performed 02/10/2024) Performed for Pain of left hip, Status post hip surgery * XR PELVIS 1 OR 2VW(Performed 02/10/2024) Performed for Pain of left hip, Status post hip surgery * XR PELVIS 1 OR 2VW(Performed 02/13/2021) Performed for Femoroacetabular impingement of left hip * XR HIP LEFT 2VW OR MORE(Performed 02/13/2021) Performed for Femoroacetabular impingement of left hip * ENDOTRACHEAL TUBE NOTE(Performed 01/31/2021) * ARTHROSCOPY HIP(Performed 01/31/2021) Performed for Femoroacetabular impingement of left hip * CT HIP LEFT WO CONTRAST(Performed 10/16/2020) Performed for Hip impingement syndrome, left * CT 3D RECON W INDEPENDENT WKSN(Performed 10/16/2020) Performed for Hip impingement syndrome, left * US JOINT INJECTION OR ASPIRATE(Performed 07/30/2020) Performed for Hip impingement syndrome, right * US JOINT INJECTION OR ASPIRATE(Performed 07/30/2020) Performed for Hip impingement syndrome, left * XR PELVIS W RIGHT HIP 2VW(Performed 06/29/2020) Performed for Bilateral hip pain * XR PELVIS W LEFT HIP 2VW(Performed 06/29/2020) Performed for Bilateral hip pain * XR PELVIS 1 OR 2VW(Performed 06/29/2020) Performed for Bilateral hip pain Results * XR Hip Left 2Vw or More (02/10/2024 9:08 AM CDT) Only the most recent of2 resultswithin the time period is included. Anatomical Region Laterality Modality Pelvis, Lower Extremity Radiogra phic Imaging 02/10/2024 9:27 AM CDT Narrative 02/10/2024 9:29 AM CDT PROCEDURE: ??XR PELVIS 1 OR 2VW, XR HIP LEFT 2VW OR MORE DATE/TIME OF EXAM: ??02/10/2024 9:07 AM CLINICAL INFORMATION: None relevant/not provided if blank. Indication: M25.552: Pain of left hip Z98.890: Status post hip surgery Additional History: COMPARISON: None. FINDINGS: No acute fractures or dislocations is seen. The joint spaces are preserved. Bone mineral density is within normal limits. No significant soft tissue swelling seen. Spine fusion hardware is noted in the lower lumbar and first sacral segments. Left hip: No acute fractures or dislocations is seen. No bony erosions or destructions are seen. The joint spaces are preserved. Bone mineral density is within normal limits. No significant soft tissue swelling seen. > Interpreting Provider: Finn Chaidez MD on 02/10/2024 9:29 AM Procedure Note Finn Chaidez MD - 02/10/2024 PROCEDURE: XR PELVIS 1 OR 2VW, XR HIP LEFT 2VW OR MORE DATE/TIME OF EXAM: 02/10/2024 9:07 AM CLINICAL INFORMATION: None relevant/not provided if blank. Indication: M25.552: Pain of left hip Z98.890: Status post hip surgery Additional History: COMPARISON: None. FINDINGS: No acute fractures or dislocations is seen. The joint spaces arepreserved. Bone mineral density is within normal limits. No significant soft tissue swelling seen. Spine fusion hardware is noted in the lower lumbar and first sacral segments. Left hip: No acute fractures or dislocations is seen. No bony erosionsor destructions are seen. The joint spaces are preserved. Bone mineraldensity is within normal limits. No significant soft tissue swelling seen. > Interpreting Provider: Finn Chaidez MD on 49:29 AM Kenny Rangel MD DIAGNOSTIC IMAGING O RDERABLES * XR Pelvis 1 or 2Vw (02/10/2024 9:07 AM CDT) Only the most recent of3 resultswithin the time period is included. Anatomical Region Laterality Modality Pelvis Radiographic Jennifer ging 02/10/2024 9:27 AM CDT Narrative 02/10/2024 9:29 AM CDT PROCEDURE: ??XR PELVIS 1 OR 2VW, XR HIP LEFT 2VW OR MORE DATE/TIME OF EXAM: ??02/10/2024 9:07 AM CLINICAL INFORMATION: None relevant/not provided if blank. Indication: M25.552: Pain of left hip Z98.890: Status post hip surgery Additional History: COMPARISON: None. FINDINGS: No acute fractures or dislocations is seen. The joint spaces are preserved. Bone mineral density is within normal limits. No significant soft tissue swelling seen. Spine fusion hardware is noted in the lower lumbar and first sacral segments. Left hip: No acute fractures or dislocations is seen. No bony erosions or destructions are seen. The joint spaces are preserved. Bone mineral density is within normal limits. No significant soft tissue swelling seen. > Interpreting Provider: Finn Chaidez MD on 02/10/2024 9:29 AM Procedure Note Finn Chaidez MD - 02/10/2024 PROCEDURE: XR PELVIS 1 OR 2VW, XR HIP LEFT 2VW OR MORE DATE/TIME OF EXAM: 02/10/2024 9:07 AM CLINICAL INFORMATION: None relevant/not provided if blank. Indication: M25.552: Pain of left hip Z98.890: Status post hip surgery Additional History: COMPARISON: None. FINDINGS: No acute fractures or dislocations is seen. The joint spaces arepreserved. Bone mineral density is within normal limits. No significant soft tissue swelling seen. Spine fusion hardware is noted in the lower lumbar and first sacral segments. Left hip: No acute fractures or dislocations is seen. No bony erosionsor destructions are seen. The joint spaces are preserved. Bone mineraldensity is within normal limits. No significant soft tissue swelling seen. > Interpreting Provider: Finn Chaidez MD on 49:29 AM Kenny Rangel MD DIAGNOSTIC IMAGING O RDERABLES * ETT LINE PERFORMABLE (01/31/2021 2:42 PM CDT) Narrative Apoorva Clements APRN-CRNA - 01/31/2021 2:42 PM CDT Apoorva Clements APRN-CRNA ? 01/31/2021 ??4:41 PM Endotracheal Tube Placement: ? Patient Location: OR. Intubation Event Date/Time: ??01/31/2021 2:14 PM Procedure: intubation (80914). Procedure Section: ?? Sedation: IV sedation. Indications for Airway Management: ??airway protection Procedure pretreatments used? ??Yes Induction: standard IV Patient Position: ??sniffing Mask Ventilation: easy. Blade Type: Cecelia Blade Size: 3 Laryngoscopy View: grade 2 (partial cords) Intubation Adjuncts: cricoid pressure Tube: endotracheal tube Placement: oral Tube type: cuff - inflated Tube Size (MM): 7 Depth of Insertion (CM): 21 Measured From: lips Cuff volume (mL): ??7 Cuff Inflated With: air Number of Attempts: 1. Placement Verified By: direct visualization, bilateral breath sounds, chest auscultation and CO2 monitor Tube secured with: ??adhesive tape. Dentition unchanged? ??Yes Difficult Airway? ??No. Procedure Start Time: 01/31/2021 2:14 PM. Procedure End Time: 01/31/2021 4:12 PM. Procedure Total Time: 118 ??minutes. Staff Section ?? Anesthesia Provider: Jude Zarate MD, Performed the procedure Provider #1: Apoorva Clements APRN-LEXA, Performed the procedure. Jude Zarate MD GENERAL ANESTHESI A ORDERABLES * CT HIP LEFT WO CONTRAST (10/16/2020 11:31 AM CDT) Anatomical Region Laterality Modality Lower Extremity Computed Tomogra phy 10/16/2020 2:41 PM CDT Impressions 10/16/2020 3:07 PM CDT IMPRESSION: 1. No acute osseous abnormality. 2. Dysplastic bone bump and cystic change at the anterior-superior aspect of the femoral head neck junction. These features can be associated with femoroacetabular impingement. This report was electronically signed by GA SNYDER MD ??on 10/16/2020 3:07 PM . Narrative 10/16/2020 3:07 PM CDT Exam: CT HIP LEFT WO CONTRAST CT 3D RECON W INDEPENDENT WKSN History: ??M25.852: Hip impingement syndrome, left Comparison: Left hip radiographs dated 06/29/2020. TECHNIQUE: 1. Noncontrast axial images of the left hip were obtained. Sagittal and coronal reconstructions were performed. 2. 3-D reconstructions were performed on an independent workstation. Findings: There is no fracture or dislocation. The joint space is normal. There is a dysplastic bone bump at the anterior-superior aspect of the femoral head-neck junction with cystic change in this region and increased alpha angle measuring 64 degrees at the 2:00 position and 60 degrees at the 1:00 position. This can be associated with femoroacetabular impingement. Acetabular version measures 2 degrees at the level of the top of the femoral head (relative retroversion). There is appropriate acetabular coverage of the femoral head in the coronal plane with center-edge angle of 34 degrees. There is no hip effusion. The muscles are normal in bulk. The subcutaneous tissues are normal. 3-D reconstructions confirm the above osseous findings. Procedure Note Ga Snyder MD - 10/16/2020 Exam: CT HIP LEFT WO CONTRAST CT 3D RECON W INDEPENDENT WKSN History: M25.852: Hip impingement syndrome, left Comparison: Left hip radiographs dated 06/29/2020. TECHNIQUE: 1. Noncontrast axial images of the left hip were obtained. Sagittal and coronal reconstructions were performed. 2. 3-D reconstructions were performed on an independent workstation. Findings: There is no fracture or dislocation. The joint space is normal. There stuart dysplastic bone bump at the anterior-superior aspect of the femoral head-neck junction with cystic change in this region and increased alpha angle measuring 64 degrees at the 2:00 position and 60 degrees at the1:00 position. This can be associated with femoroacetabular impingement. Acetabular version measures 2 degrees at the level of the top of the femoral head (relative retroversion). There is appropriate acetabular coverage of the femoral head in the coronal plane with center-edge angle of 34 degrees. There is no hip effusion. The muscles are normal in bulk. Thesubcutaneous tissues are normal. 3-D reconstructions confirm the above osseous findings. IMPRESSION: 1. No acute osseous abnormality. 2. Dysplastic bone bump and cystic change at the anterior-superioraspect of the femoral head neck junction. These features can be associated with femoroacetabular impingement. This report was electronically signed by GA SNYDER MD on10/16/2020 3:07 PM . Khanh Kirk III, MD CT ORDERABLES * CT 3D RECON W INDEPENDENT WKSN (10/16/2020 11:30 AM CDT) Anatomical Region Laterality Modality Computed Tomogra phy 10/16/2020 2:41 PM CDT Impressions 10/16/2020 3:07 PM CDT IMPRESSION: 1. No acute osseous abnormality. 2. Dysplastic bone bump and cystic change at the anterior-superior aspect of the femoral head neck junction. These features can be associated with femoroacetabular impingement. This report was electronically signed by GA SNYDER MD ??on 10/16/2020 3:07 PM . Narrative 10/16/2020 3:07 PM CDT Exam: CT HIP LEFT WO CONTRAST CT 3D RECON W INDEPENDENT WKSN History: ??M25.852: Hip impingement syndrome, left Comparison: Left hip radiographs dated 06/29/2020. TECHNIQUE: 1. Noncontrast axial images of the left hip were obtained. Sagittal and coronal reconstructions were performed. 2. 3-D reconstructions were performed on an independent workstation. Findings: There is no fracture or dislocation. The joint space is normal. There is a dysplastic bone bump at the anterior-superior aspect of the femoral head-neck junction with cystic change in this region and increased alpha angle measuring 64 degrees at the 2:00 position and 60 degrees at the 1:00 position. This can be associated with femoroacetabular impingement. Acetabular version measures 2 degrees at the level of the top of the femoral head (relative retroversion). There is appropriate acetabular coverage of the femoral head in the coronal plane with center-edge angle of 34 degrees. There is no hip effusion. The muscles are normal in bulk. The subcutaneous tissues are normal. 3-D reconstructions confirm the above osseous findings. Procedure Note Ga Snyder MD - 10/16/2020 Exam: CT HIP LEFT WO CONTRAST CT 3D RECON W INDEPENDENT S History: M25.852: Hip impingement syndrome, left Comparison: Left hip radiographs dated 06/29/2020. TECHNIQUE: 1. Noncontrast axial images of the left hip were obtained. Sagittal and coronal reconstructions were performed. 2. 3-D reconstructions were performed on an independent workstation. Findings: There is no fracture or dislocation. The joint space is normal. There stuart dysplastic bone bump at the anterior-superior aspect of the femoral head-neck junction with cystic change in this region and increased alpha angle measuring 64 degrees at the 2:00 position and 60 degrees at the1:00 position. This can be associated with femoroacetabular impingement. Acetabular version measures 2 degrees at the level of the top of the femoral head (relative retroversion). There is appropriate acetabular coverage of the femoral head in the coronal plane with center-edge angle of 34 degrees. There is no hip effusion. The muscles are normal in bulk. Thesubcutaneous tissues are normal. 3-D reconstructions confirm the above osseous findings. IMPRESSION: 1. No acute osseous abnormality. 2. Dysplastic bone bump and cystic change at the anterior-superioraspect of the femoral head neck junction. These features can be associated with femoroacetabular impingement. This report was electronically signed by GA SNYDER MD on10/16/2020 3:07 PM . Khanh Kirk III, MD CT ORDERABLES * US JOINT INJECTION OR ASPIRATE (07/30/2020 12:45 PM DEVELOPMENTAL THERAPIST) Only the most recent of2 resultswithin the time period is included. Narrative [facility] - 07/30/2020 12:45 PM DEVELOPMENTAL THERAPIST This procedure was performed by an Orthopedic physician in a clinic setting. ??Please see the procedure note. Khanh Kirk III, MD US ORDERABLES [facility] * XR PELVIS W RIGHT HIP 2VW (06/29/2020 11:39 AM DEVELOPMENTAL THERAPIST) Anatomical Region Laterality Modality Pelvis Radiographic Jennifer ging 07/03/2020 1:50 PM DEVELOPMENTAL THERAPIST Impressions 07/03/2020 2:50 PM DEVELOPMENTAL THERAPIST IMPRESSION: 1.No acute fractures or dislocations of the pelvis or bilateral hips. 2.There is fusion hardware of the lumbosacral spine, incompletely evaluated on this exam. There is a fracture of the most inferior right-sided sacral screw. Report drafted by Brooks Saenz DO, MPH (resident). I, Dr. HOLLY RICE have personally reviewed and interpreted this examination/study. This report was electronically signed by HOLLY RICE ??on 07/03/2020 2:50 PM . Narrative 07/03/2020 2:50 PM DEVELOPMENTAL THERAPIST EXAMINATION: XR PELVIS 1 OR 2VW, XR PELVIS W RIGHT HIP 2VW, XR PELVIS W LEFT HIP 2VW HISTORY: M25.551: Bilateral hip pain M25.552: Bilateral hip pain COMPARISON: None. FINDINGS: Pelvis: The pelvic ring is intact. There are no acute fractures. The soft tissues are without acute changes. There is fusion hardware of the lumbosacral spine with interbody devices, incompletely evaluated on this exam. The bilateral hips are well-seated within their respective acetabulum. There is a fracture of the most inferior right-sided sacral screw. Right hip: There are no acute fractures. The joint space is maintained. The soft tissues are without acute changes. There is mild right femoral head/neck offset deficiency. Left hip: There are no acute fractures. The joint space is maintained. The soft tissues are without acute changes. There is mild left femoral head/neck offset deficiency. Procedure Note Holly Rice MD - 07/03/2020 EXAMINATION: XR PELVIS 1 OR 2VW, XR PELVIS W RIGHT HIP 2VW, XR PELVIS W LEFT HIP 2VW HISTORY: M25.551: Bilateral hip pain M25.552: Bilateral hip pain COMPARISON: None. FINDINGS: Pelvis: The pelvic ring is intact. There are no acute fractures. The softtissues are without acute changes. There is fusion hardware of the lumbosacral spine with interbody devices, incompletely evaluated on this exam. The bilateral hips are well-seated within their respective acetabulum. There is a fracture of the most inferior right-sided sacral screw. Right hip: There are no acute fractures. The joint space is maintained. The soft tissues are without acute changes. There is mild right femoral head/neck offset deficiency. Left hip: There are no acute fractures. The joint space is maintained. The soft tissues are without acute changes. There is mild left femoral head/neck offset deficiency. IMPRESSION: 1.No acute fractures or dislocations of the pelvis or bilateral hips. 2.There is fusion hardware of the lumbosacral spine, incompletely evaluated on this exam. There is a fracture of the most inferior right-sided sacral screw. Report drafted by Brooks Saenz DO, MPH (resident). I, Dr. HOLLY RICE have personally reviewed and interpreted this examination/study. This report was electronically signed by HOLLY RICE on 07/03/2020 2:50 PM. Khanh Kirk III, MD DIAGNOSTIC IM AGING ORDERABLES * XR PELVIS W LEFT HIP 2VW (06/29/2020 11:38 AM DEVELOPMENTAL THERAPIST) Anatomical Region Laterality Modality Pelvis Radiographic Jennifer ging 07/03/2020 1:50 PM DEVELOPMENTAL THERAPIST Impressions 07/03/2020 2:50 PM DEVELOPMENTAL THERAPIST IMPRESSION: 1.No acute fractures or dislocations of the pelvis or bilateral hips. 2.There is fusion hardware of the lumbosacral spine, incompletely evaluated on this exam. There is a fracture of the most inferior right-sided sacral screw. Report drafted by Brooks Saenz DO, MPH (resident). I, Dr. HOLLY RICE have personally reviewed and interpreted this examination/study. This report was electronically signed by HOLLY RICE ??on 07/03/2020 2:50 PM . Narrative 07/03/2020 2:50 PM DEVELOPMENTAL THERAPIST EXAMINATION: XR PELVIS 1 OR 2VW, XR PELVIS W RIGHT HIP 2VW, XR PELVIS W LEFT HIP 2VW HISTORY: M25.551: Bilateral hip pain M25.552: Bilateral hip pain COMPARISON: None. FINDINGS: Pelvis: The pelvic ring is intact. There are no acute fractures. The soft tissues are without acute changes. There is fusion hardware of the lumbosacral spine with interbody devices, incompletely evaluated on this exam. The bilateral hips are well-seated within their respective acetabulum. There is a fracture of the most inferior right-sided sacral screw. Right hip: There are no acute fractures. The joint space is maintained. The soft tissues are without acute changes. There is mild right femoral head/neck offset deficiency. Left hip: There are no acute fractures. The joint space is maintained. The soft tissues are without acute changes. There is mild left femoral head/neck offset deficiency. Procedure Note Holly Rice MD - 07/03/2020 EXAMINATION: XR PELVIS 1 OR 2VW, XR PELVIS W RIGHT HIP 2VW, XR PELVIS W LEFT HIP 2VW HISTORY: M25.551: Bilateral hip pain M25.552: Bilateral hip pain COMPARISON: None. FINDINGS: Pelvis: The pelvic ring is intact. There are no acute fractures. The softtissues are without acute changes. There is fusion hardware of the lumbosacral spine with interbody devices, incompletely evaluated on this exam. The bilateral hips are well-seated within their respective acetabulum. There is a fracture of the most inferior right-sided sacral screw. Right hip: There are no acute fractures. The joint space is maintained. The soft tissues are without acute changes. There is mild right femoral head/neck offset deficiency. Left hip: There are no acute fractures. The joint space is maintained. The soft tissues are without acute changes. There is mild left femoral head/neck offset deficiency.
--- OUTSIDE RECORDS SUMMARY | 2024-06-30 10:36 | XMS_ITS | Clinical Summary ---
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 This disclosure is being madepursuant to the Care Everywhere program and may not contain all information available regarding this patient. Last updated 18.[facility] Allergies Active Allergy Reactions Criticality Noted Date [...] fluticasone propionate (FLONASE) 50 MCG/ACT nasal spray Gueydan 1 (one) spray into each nostril once [...] Active vitamin D, ergocalciferol, (Drisdol) 1.25 MG (76222 UT) capsule Take 1 (one) capsule by [...] send a referral to Dr. Coleman in [facility]. Patient to follow up on an as needed basis. Vasomotor rhinitis 09/02/2021 Overview (02/05/2024): Last Assessment & Plan: Discussed Vasomotor rhinitis versus Reflux therapy Wearing patrol guard Continue Nexium 40 mg 30 minutes [...] Discussed Vasomotor rhinitis versus Reflux therapy Wearing patrol guard Continue Nexium 40 mg 30 minutes [...] Mass Index 26.09 01/31/2021 12:00 PM CDT Plan of Treatment Health Maintenance Due Date Last Done Comments LIPID TESTING 1982 MAMMOGRAM 1982 MEDICARE AWV ? 12 MONTHS 1982 PAP SMEAR 1982 HIV SCREENING 1997 HEPATITIS C SCREENING 09/23/2000 HEPATITIS B VACCINE (2 of 3 - 19+ 3-dose series) 10/27/2019 09/29/2019 DTAP/TDAP/TD VACCINES (3 - Td or Tdap) 06/16/2022 06/16/2012, 06/15/2012 COVID-19 VACCINE ( season) 2024 INFLUENZA VACCINE (#1) 2024 , 03/15/2019, 04/05/2018, Additional history exists DEPRESSION SCREENING 06/01/2024 ZOSTER VACCINE (1 of 2) 2032 04/30/2023, 02/28 HIB VACCINE Aged Out No longer eligi ble based on patient's age to complete this topic HPV VACCINE Aged Out No longer eligi ble based on patient's age to complete this topic MENINGOCOCCAL (Group B) VACCINE Aged Out No longer eligible based on patient's age to complete this topic MENINGOCOCCAL VACCINE Aged Out No valentine lexa eligible based on patient's age to complete this topic Medical Devices Implanted Type Area Aircraft Servicer Device Identifier Shelf Expiration Date Model / Serial / Lot Kit Inst Hip Instrumentation Sys Implanted:Qty: 1 on 01/31/2021 [facility] [id number] / /
--- OUTSIDE RECORDS SUMMARY | 2024-06-30 10:36 | XMS_ITS | Clinical Summary ---
Author Organization [facility] Address [address] [place] [address]. 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 Name Role Phone Unavailable Primary Care Provider Unavailabl e Social History Tobacco Use Types Packs/Day Years Used Date Smoking Tobacco: Never Assessed Comments Unknown Sex and Gender Information Value Date Recorded Sex Assigned at Not on file Legal Sex Female 5:16 PM CDT Gender Identity Not on file Sexual Orientation Not on file Plan of Treatment Health Maintenance Due Date Last Done Comments Cervical Cancer Screening Pa p Smear (Age 30 to 64) Every 3 Years 1982 Annual Physical 1985 Hepatitis C 2000 DTaP, Tdap and Td Vaccines ( 1 - Tdap) 2001 Hepatitis B Vaccines (1 of 3 - 19+ 3-dose series) 2001 Cervical Cancer Screening Pa p with HPV Testing (Age 30 to 64) Every 5 Years 2012 Cervical Cancer Screening with HPV 2012 Mammogram Screening 2022 COVID-19 Vaccine (2023-2 5 season) 2024 Influenza Adult (#1) 2024 HPV Vaccines Aged Out No longer eligi ble based on patient's age to complete this topic Meningococcal B Vaccine Aged Out No l onger eligible based on patient's age to complete this topic Meningococcal Vaccine Aged Out No valentine lexa eligible based on patient's age to complete this topic Pneumococcal Vaccine: Pediat rics (0 to 5 Years) and At-Risk Patients (6 to 64 Years) Aged Out No longer eligible b ased on patient's age to complete this topic RSV Immunizations Under 20 Months Aged Out No longer eligible based on patient's age to complete this topic
--- OUTSIDE RECORDS SUMMARY | 2024-06-30 10:41 | XMS_ITS | Continuity of Care Document ---
Author Organization [facility] Address [address] [place] [address] Phone Care Team Providers Care Coo [employer] Founder Name Role Phone Devon Walsh MD Unavailable Unavailable Allergies, Adverse Reactions, Alerts Substance Reaction Status Criticality Penicillins Active No Information Medications Medication Instructions Dosage Effective Dates (start - stop) Status Comments Venlafaxine ER 75 mg 24 hr Tab - Active Gabapentin 300 mg Cap - Active Procedures Procedure Date Office/outpatient Visit, [facility] Advance Directives Directive Yes / No [...] Providers Copied on Encounter Office/outpa tient Visit, [facility], [address], [place], [place], [id number], [place] tel:[phone] [place] Professional a comprehensive exam (chief complaint) VISUAL DISTURBANCE NOSMGRN W AURA WO NTR MGRN 2 Jillian Osorio. [address], [address], [place], [place], [id number], [place]. tel:[phone] [facility], [address], [place], [place], [id number], [place] tel:[phone] [place] Professional No Information 2 Jillian Osorio. [address], [address], [place], [place], [id number], [place]. tel:[phone] Family History Family Member Type Diagnosis Age At Onset Problem (finding) Grandmother Problem (finding) Diabetes mellitus Payers Payer name Insurance type Covered constitution party ID Authoriza tion(s) No Information Social History [...] WO NTR MGRN MGRN W AUR[facility] WO [facility] MGRN, OU - Ocular migraine- vision affected - will continue to monitor - Discussed dx with pt and . Pt to monitor what brings on flashes. Explained to pt that typical or classic migraines would have headaches involved also, pt does not complain of headaches after flashes.Letter dictated to Dr. Tawana Alves. Related to MGRN W AURA WO [facility] MGRN Assessments Type Assessment Date No Information Patient Care Teams Name Effective Dates (start - stop) Status Members No Information
== END 2024-06-30 10:23 | disposition home or self-care (01) ==
PROVIDERS: Emergency Provider Nurse Practitioner Family; PCP Internal Medicine
DX: J32.9 Chronic sinusitis, unspecified (principal); H10.9 Unspecified conjunctivitis; K21.9 Gastro-esophageal reflux disease without esophagitis; M06.9 Rheumatoid arthritis, unspecified; I73.00 Raynaud's syndrome without gangrene; Z87.891 Personal history of nicotine dependence
CPT/HCPCS: 99213; G0463

== ENCOUNTER 2024-07-02 08:43 | Outpatient (CLI) | payer OTHER, MEDICARE, SELFPAY ==
--- NOTE | ~2024-07-02 | US_ITS ---
EXAMINATION: US pelvic complete w TV DATE: 07/02/2024 09:05 INDICATION: R10.31 - Right lower quadrant pain TECHNIQUE: Multiple transabdominal and endovaginal sonographic images of the pelvis were obtained. COMPARISON: 10/08/2012. FINDINGS: Uterus: 8.1 x 4.4 x 5.0 cm. Minimal fluid in the endocervical canal/lower uterine segment, likely hem orrhage. Nabothian cysts. Endometrial complex measures 11 mm. Right Ovary: Not visualized. No adnexal mass Left Ovary: 2.5 x 1.5 x 2.8 cm. Vascular flow is present. There is no free fluid in the pelvis. IMPRESSION: Right ovary not visualized. Otherwise normal pelvic sonogram findings. Reviewed, dictated and finalized at location [facility]
== END 2024-07-02 08:44 | disposition home or self-care (01) ==
LOC: MICIMG 08:44
PROVIDERS: PCP Internal Medicine; Visit Provider Obstetrics & Gynecology
DX: R10.31 Right lower quadrant pain (principal)
CPT/HCPCS: 76830; 76856